=== PATIENT | female | born 1960 | race Caucasian/White ===

== ENCOUNTER 2016-05-05 08:22 | Emergency (ER) | payer MEDICAID ==
[~2016-05-05] VITALS: Ht 172.7 cm; Wt 81.8 kg
[~2016-05-05 08:22] MED LIST: AMLO-511 PO; BENZ1TAB10 PO; LORA10TA7 PO; QUET25TA PO; SIMV-259 PO; TRAZ-147 PO; VENL-68 PO
[2016-05-05 08:32] VITALS: BP 140/82
[2016-05-06] MEDS ORDERED: DULO20CA30 PO (13:08)
[2016-05-06] MEDS ORDERED: TRAZ-144 PO (13:08)
[2016-05-06] MEDS ORDERED: QUET200T29 PO (13:08)
== END 2016-05-05 09:24 | disposition left against medical advice (07) ==
LOC: EMS 08:23
DX: F32.9 Major depressive disorder, single episode, unspecified (principal); F20.9 Schizophrenia, unspecified; F17.210 Nicotine dependence, cigarettes, uncomplicated; Z53.21 Procedure and treatment not carried out due to patient leaving prior to being seen by health care provider

== ENCOUNTER 2016-05-05 10:05 | Inpatient (IN) | payer MEDICAID ==
[~2016-05-05] VITALS: Ht 175.3 cm; Wt 102.7 kg
[2016-05-05 10:31] VITALS: BP 128/70
[2016-05-05] MEDS ORDERED: PROMETHAZINE HCL 25 MG TABLET PO PRN (11:15)
[2016-05-05] MEDS ORDERED: MAG HYDROX/AL HYDROX/SIMETH ES 30 ML SUSPENSION UDCUP PO PRN (11:15)
[2016-05-05] MEDS ORDERED: LOPERAMIDE HCL 2 MG CAPSULE PO PRN (11:15)
[2016-05-05] MEDS ORDERED: ZOLPIDEM TARTRATE 10 MG TABLET PO PRN (11:15)
[2016-05-05] MEDS ORDERED: MAGNESIUM HYDROXIDE SUSPENSION 30 ML UDCUP PO PRN (11:15)
[2016-05-05] MEDS ORDERED: VENLAFAXINE HCL 75 MG ER CAPSULE PO ONE (11:15)
[2016-05-05] MEDS ORDERED: GuaiFENesin/D-METHORPHAN [SUGAR-FREE] 200-20MG/10 ML SYRUP UDCUP PO PRN (11:15)
[2016-05-05] MEDS ORDERED: HydrOXYzine PAMOATE 50 MG CAPSULE PO PRN (11:15)
[2016-05-05] MEDS ORDERED: TUBERCULIN, PURIFIED PROTEIN DERIVATIVE 5 TU/0.1 ML SYG ID ONE (11:15)
[2016-05-05] MEDS ORDERED: PNEUMOCOCCAL VACCINE POLYVALENT 0.5 ML VIAL [PPSV23] IM ONE (12:00)
[2016-05-05] MEDS: LORazepam 2 MG TABLET PO PRN (12:26)
[2016-05-05] MEDS: QUEtiapine FUMARATE 100 MG TABLET PO PRN (12:26)
[2016-05-05 12:46] VITALS: BP 135/75
[2016-05-05 14:06] VITALS: BP 134/71
[2016-05-05] MEDS: ACETAMINOPHEN 325 MG TABLET PO PRN (14:06)
[2016-05-05 16:26] VITALS: BP 128/74
[2016-05-05] MEDS: THIAMINE HCL 100 MG TABLET PO SCH (17:05)
[2016-05-05] MEDS ORDERED: SIMVASTATIN 10 MG TABLET PO SCH (21:00)
[2016-05-05] MEDS ORDERED: TraZODone HCL 50 MG TABLET PO SCH (21:00)
[2016-05-05] MEDS ORDERED: QUEtiapine FUMARATE 200 MG TABLET PO SCH (21:00)
[2016-05-06 05:52] VITALS: BP 130/74
[2016-05-06] MEDS: LORazepam 2 MG TABLET PO PRN ×2 (06:42→12:54)
[2016-05-06] MEDS: ACETAMINOPHEN 325 MG TABLET PO PRN (06:42)
[2016-05-06 08:19] LABS: BASOPHILS % (AUTO) 0.6 % (0.0-2.0); EOSINOPHILS % (AUTO) 3.9 % (1.0-6.0); HEMATOCRIT 38.6 % (36-46); HEMOGLOBIN 12.7 g/dL (12.0-16.0); LYMPHOCYTES # (AUTO) 2.5 K/uL (1.0-4.8); LYMPHOCYTES % (AUTO) 29.1 % (22.0-44.0); MEAN CORPUSCULAR HEMOGLOBIN 29.3 pg (26.0-34.0); MEAN CORPUSCULAR VOLUME 89 fL (80-100); MONOCYTES # (AUTO) 0.6 K/uL (0.1-1.0); MONOCYTES % (AUTO) 6.7 % (2.0-9.0); NEUTROPHILS # (AUTO) 5.1 K/uL (1.8-7.7); NEUTROPHILS % (AUTO) 59.7 % (40.0-70.0); PLATELET COUNT (AUTO) 400 K/uL (150-450); RED BLOOD CELL COUNT(AUTO) 4.34 MIL/uL (4.00-5.20); WHITE BLOOD COUNT (AUTO) 8.5 K/uL (4.5-11.0)
[2016-05-06 08:26] VITALS: BP 103/60
[2016-05-06] MEDS: THIAMINE HCL 100 MG TABLET PO SCH (08:59)
[2016-05-06] MEDS ORDERED: VENLAFAXINE HCL 75 MG ER CAPSULE PO SCH (09:00)
[2016-05-06] MEDS ORDERED: FOLIC ACID 1 MG TABLET PO SCH (09:00)
[2016-05-06] MEDS ORDERED: MULTIVITAMINS WITH MINERALS, THERAPEUTIC TABLET PO SCH (09:00)
[2016-05-06] MEDS ORDERED: AmLODIPine BESYLATE 5 MG TABLET PO SCH (09:00)
[2016-05-06] MEDS ORDERED: LORATADINE 10 MG TABLET PO SCH (09:00)
[2016-05-06] MEDS ORDERED: DULoxetine HCL 20 MG CAPSULE PO SCH (09:00)
[2016-05-06 09:18] LABS: ALANINE AMINOTRANSFERASE 25 U/L (12-78); ALBUMIN 3.2 g/dL (3.4-5.0); ANION GAP 11 mmol/L (8-16); ASPARTATE AMINOTRANSFERASE 13 U/L (15-37); BILIRUBIN,TOTAL 0.3 mg/dL (0.1-1.0); CALCIUM, TOTAL 8.3 mg/dL (8.8-10.5); CARBON DIOXIDE 26 mmol/L (22-29); CHLORIDE 106 mmol/L (98-107); CREATININE 0.71 mg/dL (0.60-1.30); GLOMERULAR FILTR. RATE CALC > 60 mL/min (>60); POTASSIUM 3.9 mmol/L (3.5-5.1); SODIUM SERUM 143 mmol/L (136-145); THYROID STIMULATING HORMONE 2.91 uIU/mL (0.36-3.74); TOTAL PROTEIN, SERUM 6.8 g/dL (6.4-8.2); UREA NITROGEN, BLOOD 16 mg/dL (7-18)
[2016-05-06 09:41] LABS: HEMOGLOBIN A1C 5.8 % (4.5-6.2)
[2016-05-06 10:32] LABS: APPEARANCE,URINE CLOUDY (CLEAR); GLUCOSE, URINE (UA) NEGATIVE (NEGATIVE); KETONES,URINE NEGATIVE (NEGATIVE); LEUKOCYTE ESTERASE ,URINE NEGATIVE (NEGATIVE); OCCULT BLOOD,URINE NEGATIVE (NEGATIVE); PH,URINE 5.5 (5.0-8.0); PROTEIN,URINE NEGATIVE (NEGATIVE)
[2016-05-06 10:33] LABS: ADD UA MICROSCOPIC YES
[2016-05-06 10:38] LABS: AMORPHOUS SEDIMENT,UR Many /LPF (None Seen); CALCIUM OXALATE CRYSTALS,UR Few /LPF (None Seen); RBC,URINE None Seen /HPF (0-2); WBC,URINE None Seen /HPF (0-5)
[2016-05-06] MEDS: QUEtiapine FUMARATE 100 MG TABLET PO PRN (12:54)
[2016-05-06] MEDS ORDERED: TRAZ-144 PO (13:08)
[2016-05-06] MEDS ORDERED: QUET200T29 PO (13:08)
[2016-05-06] MEDS ORDERED: DULO20CA30 PO (13:08)
[2016-05-07] MEDS ORDERED: DULoxetine HCL 20 MG CAPSULE PO SCH (09:00)
== END 2016-05-06 14:40 | disposition home or self-care (01) | DRG 750 ==
LOC: EDSTATUS 10:16 → B2S 11:21
PROVIDERS: ADMIT Psychiatry & Neurology Psychiatry; ATTEND Psychiatry & Neurology Psychiatry
DX: F25.9 Schizoaffective disorder, unspecified (principal); R45.851 Suicidal ideations; Z91.14 Patient's other noncompliance with medication regimen; F41.9 Anxiety disorder, unspecified; M19.90 Unspecified osteoarthritis, unspecified site; I10 Essential (primary) hypertension; E78.5 Hyperlipidemia, unspecified; F32.9 Major depressive disorder, single episode, unspecified; G89.4 Chronic pain syndrome; J30.9 Allergic rhinitis, unspecified; F15.10 Other stimulant abuse, uncomplicated; F17.210 Nicotine dependence, cigarettes, uncomplicated; Z98.890 Other specified postprocedural states; Z96.642 Presence of left artificial hip joint; Z79.899 Other long term (current) drug therapy; Z59.0 Homelessness; Z71.51 Drug abuse counseling and surveillance of drug abuser; Z71.89 Other specified counseling; Z28.21 Immunization not carried out because of patient refusal
CPT/HCPCS: 80307; 83036; 84439; 84443; 86592

== ENCOUNTER 2016-06-20 15:33 | Inpatient (IN) | payer MEDICAID ==
[~2016-06-20] VITALS: Ht 175.3 cm; Wt 103.4 kg
[~2016-06-20 15:33] MED LIST changes: -BENZ1TAB10 PO; +DULO20CA30 PO; +QUET200T29 PO; -QUET25TA PO; -SIMV-259 PO; +SIMV10 PO; +TRAZ-144 PO; -TRAZ-147 PO; -VENL-68 PO
[2016-06-20 16:02] LABS: EOSINOPHILS % (AUTO) 2.7 % (1.0-6.0); HEMATOCRIT 41.7 % (36-46); HEMOGLOBIN 13.6 g/dL (12.0-16.0); LYMPHOCYTES % (AUTO) 31.8 % (22.0-44.0); MEAN CORPUSCULAR HEMOGLOBIN 29.2 pg (26.0-34.0); MEAN CORPUSCULAR HGB CONC 32.5 G/dL (31.0-37.0); MEAN CORPUSCULAR VOLUME 90 fL (80-100); MONOCYTES # (AUTO) 0.5 K/uL (0.1-1.0); MONOCYTES % (AUTO) 5.3 % (2.0-9.0); NEUTROPHILS # (AUTO) 5.6 K/uL (1.8-7.7); NEUTROPHILS % (AUTO) 59.2 % (40.0-70.0); PLATELET COUNT (AUTO) 356 K/uL (150-450); RED BLOOD CELL COUNT(AUTO) 4.64 MIL/uL (4.00-5.20); RED CELL DISTRIBUTION WIDTH 14.5 % (11.5-14.5); WHITE BLOOD COUNT (AUTO) 9.4 K/uL (4.5-11.0)
[2016-06-20 16:09] LABS: ANION GAP 8 mmol/L (8-16); CALCIUM, TOTAL 8.9 mg/dL (8.8-10.5); CARBON DIOXIDE 29 mmol/L (22-29); CHLORIDE 102 mmol/L (98-107); CREATININE 0.71 mg/dL (0.60-1.30); GLOMERULAR FILTR. RATE CALC > 60 mL/min (>60); SODIUM SERUM 139 mmol/L (136-145); UREA NITROGEN, BLOOD 15 mg/dL (7-18)
[2016-06-20 16:17] LABS: ALANINE AMINOTRANSFERASE 31 U/L (12-78); ALBUMIN 3.9 g/dL (3.4-5.0); ASPARTATE AMINOTRANSFERASE 18 U/L (15-37); BILIRUBIN,TOTAL 0.2 mg/dL (0.1-1.0); TOTAL PROTEIN, SERUM 7.8 g/dL (6.4-8.2)
[2016-06-20 16:26] LABS: ADD UA MICROSCOPIC NO; APPEARANCE,URINE CLEAR (CLEAR); GLUCOSE, URINE (UA) NEGATIVE (NEGATIVE); KETONES,URINE NEGATIVE (NEGATIVE); LEUKOCYTE ESTERASE ,URINE NEGATIVE (NEGATIVE); OCCULT BLOOD,URINE NEGATIVE (NEGATIVE); PROTEIN,URINE NEGATIVE (NEGATIVE)
[2016-06-20] MEDS ORDERED: HALOPERIDOL 5 MG TABLET PO ONE (18:45)
[2016-06-20] MEDS ORDERED: LORazepam 2 MG TABLET PO ONE (18:45)
[2016-06-20] MEDS ORDERED: HALOPERIDOL 5 MG TABLET PO PRN (19:15)
[2016-06-20] MEDS ORDERED: ZOLPIDEM TARTRATE 10 MG TABLET PO PRN (19:15)
[2016-06-20 21:39] VITALS: BP 137/75
[2016-06-20] MEDS: LORazepam 2 MG TABLET PO PRN (22:03)
[2016-06-21 06:30] VITALS: BP 132/79
[2016-06-21] MEDS: AmLODIPine BESYLATE 5 MG TABLET PO SCH (08:11)
[2016-06-21] MEDS: LORATADINE 10 MG TABLET PO SCH (08:11)
[2016-06-21] MEDS: LORazepam 2 MG TABLET PO PRN (08:19)
[2016-06-21 08:58] VITALS: BP 138/87
[2016-06-21] MEDS: DULoxetine HCL 20 MG CAPSULE PO SCH (12:45)
[2016-06-21] MEDS: QUEtiapine FUMARATE 25 MG TABLET PO PRN (13:25)
[2016-06-21 16:07] VITALS: BP 132/61
[2016-06-21] MEDS: QUEtiapine FUMARATE 200 MG TABLET PO SCH (20:31)
[2016-06-21] MEDS: TraZODone HCL 50 MG TABLET PO SCH (20:31)
[2016-06-21] MEDS: SIMVASTATIN 10 MG TABLET PO SCH (20:31)
[2016-06-22 07:10] VITALS: BP 121/75
[2016-06-22] MEDS: DULoxetine HCL 20 MG CAPSULE PO SCH (08:15)
[2016-06-22] MEDS: AmLODIPine BESYLATE 5 MG TABLET PO SCH (08:15)
[2016-06-22] MEDS: LORATADINE 10 MG TABLET PO SCH (08:15)
[2016-06-22] MEDS: QUEtiapine FUMARATE 25 MG TABLET PO PRN ×3 (08:16→16:39)
[2016-06-22 08:30] VITALS: BP 133/68
[2016-06-22] MEDS: LORazepam 2 MG TABLET PO PRN ×3 (08:30→17:03)
[2016-06-22] MEDS: ACETAMINOPHEN 325 MG TABLET PO PRN (16:07)
[2016-06-22 16:08] VITALS: BP 128/72
[2016-06-22 16:18] VITALS: BP 119/74
[2016-06-22] MEDS: TraZODone HCL 50 MG TABLET PO SCH (20:32)
[2016-06-22] MEDS: QUEtiapine FUMARATE 200 MG TABLET PO SCH (20:32)
[2016-06-22] MEDS: SIMVASTATIN 10 MG TABLET PO SCH (20:34)
[2016-06-23 00:05] VITALS: BP 101/63
[2016-06-23 05:13] VITALS: BP 148/79
[2016-06-23] MEDS: ACETAMINOPHEN 325 MG TABLET PO PRN (05:18)
[2016-06-23] MEDS: LORazepam 2 MG TABLET PO PRN ×2 (05:18→11:47)
[2016-06-23] MEDS: QUEtiapine FUMARATE 25 MG TABLET PO PRN ×3 (05:48→15:53)
[2016-06-23] MEDS: AmLODIPine BESYLATE 5 MG TABLET PO SCH (08:19)
[2016-06-23] MEDS: DULoxetine HCL 20 MG CAPSULE PO SCH (08:19)
[2016-06-23] MEDS: LORATADINE 10 MG TABLET PO SCH (08:20)
[2016-06-23 08:41] VITALS: BP 137/72
[2016-06-23] MEDS: NICOTINE 14 MG/24 HOUR PATCH TD SCH (11:08)
[2016-06-23 16:14] VITALS: BP 145/82
[2016-06-23] MEDS: QUEtiapine FUMARATE 200 MG TABLET PO SCH (20:45)
[2016-06-23] MEDS: SIMVASTATIN 10 MG TABLET PO SCH (20:45)
[2016-06-23] MEDS: TraZODone HCL 50 MG TABLET PO SCH (20:46)
[2016-06-24 06:05] VITALS: BP 109/66
[2016-06-24] MEDS: LORazepam 2 MG TABLET PO PRN ×2 (06:06→11:58)
[2016-06-24] MEDS: ACETAMINOPHEN 325 MG TABLET PO PRN (06:06)
[2016-06-24] MEDS: QUEtiapine FUMARATE 25 MG TABLET PO PRN (06:59)
[2016-06-24 08:31] VITALS: BP 121/75
[2016-06-24] MEDS: DULoxetine HCL 20 MG CAPSULE PO SCH (08:51)
[2016-06-24] MEDS: AmLODIPine BESYLATE 5 MG TABLET PO SCH (08:51)
[2016-06-24] MEDS: NICOTINE 14 MG/24 HOUR PATCH TD SCH (08:51)
[2016-06-24] MEDS: LORATADINE 10 MG TABLET PO SCH (08:51)
== END 2016-06-24 13:55 | disposition home or self-care (01) | DRG 750 ==
LOC: EMS 15:35 → EEVIPCON 15:35 → B3A 19:45 → B2S 06-22 18:05
PROVIDERS: ADMIT Psychiatry & Neurology Child & Adolescent Psychiatry; ATTEND Psychiatry & Neurology Child & Adolescent Psychiatry
DX: F25.1 Schizoaffective disorder, depressive type (principal); R45.851 Suicidal ideations; I10 Essential (primary) hypertension; M19.90 Unspecified osteoarthritis, unspecified site; F17.210 Nicotine dependence, cigarettes, uncomplicated; E78.5 Hyperlipidemia, unspecified; Z96.642 Presence of left artificial hip joint; J30.9 Allergic rhinitis, unspecified; F99 Mental disorder, not otherwise specified; Z79.899 Other long term (current) drug therapy; Z71.6 Tobacco abuse counseling
CPT/HCPCS: 99285; G0480

== ENCOUNTER 2017-01-27 13:08 | Inpatient (IN) | payer MEDICAID ==
[~2017-01-27] VITALS: Ht 175.3 cm; Wt 98.6 kg
[~2017-01-27 13:08] MED LIST changes: +SIMV-259 PO; -SIMV10 PO
[2017-01-27 13:55] LABS: EOSINOPHILS % (AUTO) 2.8 % (1.0-6.0); HEMATOCRIT 40.8 % (36-46); HEMOGLOBIN 13.8 g/dL (12.0-16.0); LYMPHOCYTES # (AUTO) 2.5 K/uL (1.0-4.8); LYMPHOCYTES % (AUTO) 27.1 % (22.0-44.0); MEAN CORPUSCULAR HEMOGLOBIN 30.1 pg (26.0-34.0); MEAN CORPUSCULAR HGB CONC 33.8 G/dL (31.0-37.0); MEAN CORPUSCULAR VOLUME 89 fL (80-100); MONOCYTES # (AUTO) 0.4 K/uL (0.1-1.0); MONOCYTES % (AUTO) 4.6 % (2.0-9.0); PLATELET COUNT (AUTO) 416 K/uL (150-450); RED BLOOD CELL COUNT(AUTO) 4.58 MIL/uL (4.00-5.20); RED CELL DISTRIBUTION WIDTH 14.8 % (11.5-14.5); WHITE BLOOD COUNT (AUTO) 9.3 K/uL (4.5-11.0)
[2017-01-27 14:15] LABS: ALANINE AMINOTRANSFERASE 25 U/L (12-78); ALBUMIN 3.4 g/dL (3.4-5.0); ANION GAP 8 mmol/L (8-16); ASPARTATE AMINOTRANSFERASE 17 U/L (15-37); BILIRUBIN,TOTAL 0.2 mg/dL (0.1-1.0); CALCIUM, TOTAL 8.9 mg/dL (8.8-10.5); CARBON DIOXIDE 29 mmol/L (22-29); CHLORIDE 104 mmol/L (98-107); POTASSIUM 3.2 mmol/L (3.5-5.1); SODIUM SERUM 141 mmol/L (136-145); TOTAL PROTEIN, SERUM 6.9 g/dL (6.4-8.2); UREA NITROGEN, BLOOD 17 mg/dL (7-18)
[2017-01-27 14:24] LABS: CREATININE 0.95 mg/dL (0.60-1.30); GLOMERULAR FILTR. RATE CALC > 60 mL/min (>60)
[2017-01-27 14:36] LABS: NEUTROPHILS % (AUTO) 64.5 % (40.0-70.0)
[2017-01-27] MEDS: LORazepam 2 MG TABLET PO PRN ×2 (16:26→20:39)
[2017-01-27] MEDS ORDERED: POTASSIUM CHLORIDE 20 MEQ ER TABLET PO ONE (16:30)
[2017-01-27 17:34] VITALS: BP 149/82
[2017-01-27] MEDS ORDERED: PNEUMOCOCCAL VACCINE POLYVALENT 0.5 ML VIAL [PPSV23] IM ONE (17:45)
[2017-01-27] MEDS ORDERED: INFLUENZA VIRUS VACCINE QVS 2017-18 (3YR+)/PF 60 MCG/0.5 ML SYRINGE IM ONE (17:45)
[2017-01-27] MEDS: HALOPERIDOL 5 MG TABLET PO PRN (17:58)
[2017-01-27 18:37] VITALS: BP 152/79
[2017-01-27] MEDS: IBUPROFEN 400 MG TABLET PO PRN (20:23)
[2017-01-27] MEDS: QUEtiapine FUMARATE 200 MG TABLET PO SCH (20:23)
[2017-01-27] MEDS: AmLODIPine BESYLATE 5 MG TABLET PO SCH (20:23)
[2017-01-27 21:42] VITALS: BP 149/85
[2017-01-27] MEDS ORDERED: LORATADINE 10 MG TABLET PO PRN (22:00)
[2017-01-27] MEDS ORDERED: ACETAMINOPHEN 325 MG TABLET PO PRN (22:00)
[2017-01-28 00:10] VITALS: BP 148/83
[2017-01-28] MEDS ORDERED: QUEtiapine FUMARATE 25 MG TABLET PO SCH (01:00)
[2017-01-28 08:23] VITALS: BP 130/65
[2017-01-28 08:41] LABS: CHOL/HDL RATIO 6.2 (3.9-5.7); POTASSIUM 3.8 mmol/L (3.5-5.1)
[2017-01-28] MEDS: DULoxetine HCL 20 MG CAPSULE PO SCH (09:15)
[2017-01-28] MEDS: AmLODIPine BESYLATE 5 MG TABLET PO SCH (09:15)
[2017-01-28] MEDS: LORazepam 2 MG TABLET PO PRN (09:39)
[2017-01-28] MEDS: HALOPERIDOL 5 MG TABLET PO PRN (10:52)
[2017-01-28] MEDS: QUEtiapine FUMARATE 25 MG TABLET PO SCH (13:12)
[2017-01-28 16:04] VITALS: BP 131/74
[2017-01-28] MEDS: QUEtiapine FUMARATE 200 MG TABLET PO SCH (20:04)
[2017-01-29 06:22] VITALS: BP 135/72
[2017-01-29] MEDS: LORazepam 2 MG TABLET PO PRN ×2 (06:31→11:28)
[2017-01-29] MEDS: HALOPERIDOL 5 MG TABLET PO PRN (06:54)
[2017-01-29] MEDS: IBUPROFEN 400 MG TABLET PO PRN (06:54)
[2017-01-29] MEDS: QUEtiapine FUMARATE 25 MG TABLET PO SCH ×2 (08:08→12:56)
[2017-01-29] MEDS: AmLODIPine BESYLATE 5 MG TABLET PO SCH (08:08)
[2017-01-29] MEDS: DULoxetine HCL 20 MG CAPSULE PO SCH (08:08)
[2017-01-29 08:23] VITALS: BP 137/73
[2017-01-29 16:35] VITALS: BP 134/67
[2017-01-29] MEDS: QUEtiapine FUMARATE 200 MG TABLET PO SCH (20:54)
[2017-01-30 05:10] VITALS: BP 132/73
[2017-01-30] MEDS: IBUPROFEN 400 MG TABLET PO PRN ×2 (05:15→13:25)
[2017-01-30 06:15] VITALS: BP 132/79
[2017-01-30] MEDS: AmLODIPine BESYLATE 5 MG TABLET PO SCH (08:04)
[2017-01-30] MEDS: QUEtiapine FUMARATE 25 MG TABLET PO SCH ×2 (08:05→12:28)
[2017-01-30] MEDS: DULoxetine HCL 20 MG CAPSULE PO SCH (08:05)
[2017-01-30 08:36] VITALS: BP 147/67
[2017-01-30] MEDS: LORazepam 2 MG TABLET PO PRN ×2 (10:21→15:50)
[2017-01-30] MEDS: HALOPERIDOL 5 MG TABLET PO PRN (13:25)
[2017-01-30 13:26] VITALS: BP 130/76
[2017-01-30 15:50] VITALS: BP 128/84
[2017-01-30] MEDS: TraMADol HCL 50 MG TABLET PO PRN (15:50)
[2017-01-30 16:09] VITALS: BP 129/75
[2017-01-30] MEDS: QUEtiapine FUMARATE 200 MG TABLET PO SCH (20:27)
[2017-01-30] MEDS ORDERED: ACETAMINOPHEN 325 MG TABLET PO PRN (22:00)
[2017-01-31 05:23] VITALS: BP 146/82
[2017-01-31] MEDS: IBUPROFEN 400 MG TABLET PO PRN ×2 (05:46→21:35)
[2017-01-31] MEDS: LORazepam 2 MG TABLET PO PRN ×3 (05:47→20:45)
[2017-01-31] MEDS: QUEtiapine FUMARATE 25 MG TABLET PO SCH ×2 (07:01→12:23)
[2017-01-31 08:18] VITALS: BP 121/60
[2017-01-31] MEDS: AmLODIPine BESYLATE 5 MG TABLET PO SCH ×2 (09:00→09:12)
[2017-01-31] MEDS: DULoxetine HCL 20 MG CAPSULE PO SCH (09:12)
[2017-01-31] MEDS: TraMADol HCL 50 MG TABLET PO PRN ×2 (09:56→18:01)
[2017-01-31 16:03] VITALS: BP 140/82
[2017-01-31] MEDS: QUEtiapine FUMARATE 200 MG TABLET PO SCH (20:45)
[2017-02-01 02:32] VITALS: BP 140/77
[2017-02-01] MEDS: ZOLPIDEM TARTRATE 10 MG TABLET PO PRN (02:34)
[2017-02-01] MEDS: TraMADol HCL 50 MG TABLET PO PRN ×2 (02:34→12:41)
[2017-02-01] MEDS: QUEtiapine FUMARATE 25 MG TABLET PO SCH ×2 (06:41→12:41)
[2017-02-01 08:19] VITALS: BP 135/81
[2017-02-01] MEDS: DULoxetine HCL 20 MG CAPSULE PO SCH (09:00)
[2017-02-01] MEDS: AmLODIPine BESYLATE 5 MG TABLET PO SCH (09:00)
[2017-02-01] MEDS: LORazepam 2 MG TABLET PO PRN ×2 (14:08→20:05)
[2017-02-01 16:02] VITALS: BP 128/68
[2017-02-01] MEDS: SIMVASTATIN 10 MG TABLET PO SCH (20:05)
[2017-02-01] MEDS: QUEtiapine FUMARATE 200 MG TABLET PO SCH (20:05)
[2017-02-02 02:15] VITALS: BP 138/72
[2017-02-02] MEDS: ZOLPIDEM TARTRATE 10 MG TABLET PO PRN (02:18)
[2017-02-02] MEDS: TraMADol HCL 50 MG TABLET PO PRN ×2 (02:19→20:23)
[2017-02-02] MEDS: LORazepam 2 MG TABLET PO PRN ×2 (06:11→11:12)
[2017-02-02] MEDS: IBUPROFEN 400 MG TABLET PO PRN (06:12)
[2017-02-02] MEDS: QUEtiapine FUMARATE 25 MG TABLET PO SCH ×2 (06:12→12:41)
[2017-02-02 08:00] VITALS: BP 119/63
[2017-02-02] MEDS: DULoxetine HCL 20 MG CAPSULE PO SCH (08:46)
[2017-02-02] MEDS: AmLODIPine BESYLATE 5 MG TABLET PO SCH (08:49)
[2017-02-02 09:54] VITALS: BP 131/74
[2017-02-02 10:58] LABS: GLUCOSE,POINT OF CARE 100 MG/DL (70-110)
[2017-02-02 15:59] VITALS: BP 129/65
[2017-02-02 16:10] VITALS: BP 129/65
[2017-02-02] MEDS: QUEtiapine FUMARATE 200 MG TABLET PO SCH (20:22)
[2017-02-02] MEDS: SIMVASTATIN 10 MG TABLET PO SCH (20:22)
[2017-02-02 20:23] VITALS: BP 120/69
[2017-02-03 00:05] VITALS: BP 124/67
[2017-02-03 03:03] VITALS: BP 134/80
[2017-02-03] MEDS: ZOLPIDEM TARTRATE 10 MG TABLET PO PRN (03:15)
[2017-02-03] MEDS: IBUPROFEN 400 MG TABLET PO PRN (03:16)
[2017-02-03 06:31] VITALS: BP 135/94
[2017-02-03] MEDS: QUEtiapine FUMARATE 25 MG TABLET PO SCH ×2 (06:38→12:54)
[2017-02-03] MEDS: TraMADol HCL 50 MG TABLET PO PRN ×2 (06:38→14:54)
[2017-02-03] MEDS: AmLODIPine BESYLATE 5 MG TABLET PO SCH (08:17)
[2017-02-03] MEDS: DULoxetine HCL 20 MG CAPSULE PO SCH (08:17)
[2017-02-03 08:26] VITALS: BP 134/79
[2017-02-03] MEDS: LORazepam 2 MG TABLET PO PRN (08:26)
[2017-02-03] MEDS: HALOPERIDOL 5 MG TABLET PO PRN (10:31)
[2017-02-03] MEDS ORDERED: QUET200T PO (14:16)
[2017-02-03] MEDS ORDERED: QUET25TA PO ×2 (14:16→14:17)
[2017-02-03] MEDS ORDERED: DULO20CA30 PO (14:18)
[2017-02-03] MEDS ORDERED: SIMV-259 PO (14:18)
[2017-02-03] MEDS ORDERED: AMLO-511 PO (14:19)
[2017-02-03 14:54] VITALS: BP 128/82
[2017-02-03 16:13] VITALS: BP 133/68
== END 2017-02-03 16:10 | disposition home or self-care (01) | DRG 750 ==
LOC: EMS 13:09 → B2S 16:10
DX: F25.1 Schizoaffective disorder, depressive type (principal); R45.851 Suicidal ideations; I10 Essential (primary) hypertension; E78.5 Hyperlipidemia, unspecified; J30.9 Allergic rhinitis, unspecified; Z87.891 Personal history of nicotine dependence; Z91.5 Personal history of self-harm; Z96.642 Presence of left artificial hip joint; M19.90 Unspecified osteoarthritis, unspecified site; F12.90 Cannabis use, unspecified, uncomplicated; Z28.21 Immunization not carried out because of patient refusal
CPT/HCPCS: 82962; 83036; 84132; 84439; 84443; 99285; G0480

== ENCOUNTER 2017-11-27 16:16 | Inpatient (IN) | payer MEDICAID ==
[~2017-11-27] VITALS: Ht 175.3 cm; Wt 89.9 kg
[~2017-11-27 16:16] MED LIST changes: -LORA10TA7 PO; +QUET200T PO; -QUET200T29 PO; +QUET25TA PO; -TRAZ-144 PO
[2017-11-27 19:05] LABS: BASOPHILS % (AUTO) 0.6 % (0.0-2.0); HEMATOCRIT 38.8 % (36-46); LYMPHOCYTES # (AUTO) 3.2 K/uL (1.0-4.8); LYMPHOCYTES % (AUTO) 35.7 % (22.0-44.0); MEAN CORPUSCULAR HEMOGLOBIN 30.1 pg (26.0-34.0); MEAN CORPUSCULAR HGB CONC 33.5 G/dL (31.0-37.0); MEAN CORPUSCULAR VOLUME 90 fL (80-100); MONOCYTES # (AUTO) 0.3 K/uL (0.1-1.0); MONOCYTES % (AUTO) 3.6 % (2.0-9.0); NEUTROPHILS % (AUTO) 56.1 % (40.0-70.0); PLATELET COUNT (AUTO) 441 K/uL (150-450); RED BLOOD CELL COUNT(AUTO) 4.31 MIL/uL (4.00-5.20); RED CELL DISTRIBUTION WIDTH 14.4 % (11.5-14.5)
[2017-11-27 19:16] LABS: ANION GAP 9 mmol/L (8-16); CALCIUM, TOTAL 8.9 mg/dL (8.8-10.5); CARBON DIOXIDE 27 mmol/L (22-29); CHLORIDE 106 mmol/L (98-107); CREATININE 0.89 mg/dL (0.60-1.30); GLOMERULAR FILTR. RATE CALC > 60 mL/min (>60); GLUCOSE,RANDOM 88 mg/dL (70-110); SODIUM SERUM 142 mmol/L (136-145); UREA NITROGEN, BLOOD 19 mg/dL (7-18)
[2017-11-27 19:21] LABS: ALANINE AMINOTRANSFERASE 19 U/L (12-78); ALBUMIN 3.7 g/dL (3.4-5.0); ALKALINE PHOSPHATASE 113 U/L (46-116); ASPARTATE AMINOTRANSFERASE 15 U/L (15-37); BILIRUBIN,TOTAL 0.2 mg/dL (0.1-1.0); TOTAL PROTEIN, SERUM 7.6 g/dL (6.4-8.2)
[2017-11-27] MEDS ORDERED: LORazepam 1 MG TABLET PO ONE (20:00)
[2017-11-27] MEDS ORDERED: ZOLPIDEM TARTRATE 10 MG TABLET PO PRN (21:45)
[2017-11-27] MEDS ORDERED: HALOPERIDOL 5 MG TABLET PO PRN (21:45)
[2017-11-28] VITALS (12 sets, daily range): BP systolic 112–170; BP diastolic 60–93
[2017-11-28 07:27] LABS: CHOL/HDL RATIO 5.3 (3.9-5.7)
[2017-11-28] MEDS: LORazepam 2 MG TABLET PO PRN ×2 (09:02→16:55)
[2017-11-28] MEDS ORDERED: CloNIDine HCL 0.1 MG TABLET PO PRN (10:30)
[2017-11-28] MEDS ORDERED: PETROLATUM,WHITE 71 GM JELLY TP PRN (10:30)
[2017-11-28] MEDS ORDERED: MAG HYDROX/AL HYDROX/SIMETH ES 30 ML SUSPENSION UDCUP PO PRN (10:30)
[2017-11-28] MEDS ORDERED: MAGNESIUM HYDROXIDE SUSPENSION 30 ML UDCUP PO PRN (10:30)
[2017-11-28] MEDS ORDERED: NICOTINE 14 MG/24 HOUR PATCH TD PRN (10:30)
[2017-11-28] MEDS ORDERED: ALBUTEROL SULFATE HFA 90 MCG/PUFF 8 GM INHALER IH PRN (10:30)
[2017-11-28] MEDS ORDERED: DOCUSATE SODIUM 100 MG CAPSULE PO PRN (10:30)
[2017-11-28] MEDS ORDERED: GuaiFENesin/D-METHORPHAN [SUGAR-FREE] 200-20MG/10 ML SYRUP UDCUP PO PRN (10:30)
[2017-11-28] MEDS ORDERED: LOPERAMIDE HCL 2 MG CAPSULE PO PRN (10:30)
[2017-11-28] MEDS ORDERED: ONDANSETRON HCL 4 MG TABLET PO PRN (10:30)
[2017-11-28] MEDS: DULoxetine HCL 20 MG CAPSULE PO SCH (11:03)
[2017-11-28] MEDS: IBUPROFEN 400 MG TABLET PO PRN (11:03)
[2017-11-28] MEDS ORDERED: QUEtiapine FUMARATE 25 MG TABLET PO SCH (13:00)
[2017-11-28] MEDS ORDERED: QUEtiapine FUMARATE 200 MG TABLET PO SCH (21:00)
[2017-11-29] VITALS (8 sets, daily range): BP systolic 112–150; BP diastolic 53–90
[2017-11-29] MEDS: LORazepam 2 MG TABLET PO PRN ×3 (03:22→13:29)
[2017-11-29] MEDS: IBUPROFEN 400 MG TABLET PO PRN (04:45)
[2017-11-29] MEDS ORDERED: QUEtiapine FUMARATE 25 MG TABLET PO SCH (07:00)
[2017-11-29 07:01] LABS: BASOPHILS % (AUTO) 0.9 % (0.0-2.0); EOSINOPHILS % (AUTO) 5.7 % (1.0-6.0); HEMATOCRIT 39.4 % (36-46); HEMOGLOBIN 13.1 g/dL (12.0-16.0); LYMPHOCYTES % (AUTO) 34.3 % (22.0-44.0); MEAN CORPUSCULAR HGB CONC 33.4 G/dL (31.0-37.0); MEAN CORPUSCULAR VOLUME 90 fL (80-100); MONOCYTES # (AUTO) 0.4 K/uL (0.1-1.0); NEUTROPHILS # (AUTO) 4.8 K/uL (1.8-7.7); NEUTROPHILS % (AUTO) 54.1 % (40.0-70.0); PLATELET COUNT (AUTO) 459 K/uL (150-450); RED BLOOD CELL COUNT(AUTO) 4.39 MIL/uL (4.00-5.20); RED CELL DISTRIBUTION WIDTH 14.4 % (11.5-14.5)
[2017-11-29 07:31] LABS: ALANINE AMINOTRANSFERASE 21 U/L (12-78); ALBUMIN 3.6 g/dL (3.4-5.0); ALKALINE PHOSPHATASE 111 U/L (46-116); ANION GAP 7 mmol/L (8-16); ASPARTATE AMINOTRANSFERASE 17 U/L (15-37); BILIRUBIN,TOTAL 0.4 mg/dL (0.1-1.0); CALCIUM, TOTAL 9.2 mg/dL (8.8-10.5); CARBON DIOXIDE 29 mmol/L (22-29); CHLORIDE 103 mmol/L (98-107); CHOL/HDL RATIO 5.2 (3.9-5.7); CHOLESTEROL 279 mg/dL (131-200); CREATININE 0.68 mg/dL (0.60-1.30); GLOMERULAR FILTR. RATE CALC > 60 mL/min (>60); GLUCOSE,RANDOM 96 mg/dL (70-110); HDL CHOLESTEROL 54 mg/dL (40-60); LDL CHOL (CALC.) 186 mg/dL (0-130); POTASSIUM 4.8 mmol/L (3.5-5.1); SODIUM SERUM 139 mmol/L (136-145); THYROID STIMULATING HORMONE 9.16 uIU/mL (0.36-3.74); TOTAL PROTEIN, SERUM 7.1 g/dL (6.4-8.2); TRIGLYCERIDES 194 mg/dL (15-150); UREA NITROGEN, BLOOD 19 mg/dL (7-18)
[2017-11-29 08:17] LABS: HEMOGLOBIN A1C 5.8 % (4.5-6.2)
[2017-11-29] MEDS: DULoxetine HCL 20 MG CAPSULE PO SCH (09:12)
[2017-11-29] MEDS: ACETAMINOPHEN 325 MG TABLET PO PRN (09:13)
[2017-11-29] MEDS: QUEtiapine FUMARATE 25 MG TABLET PO SCH ×2 (13:28→17:06)
[2017-11-29] MEDS ORDERED: QUEtiapine FUMARATE 300 MG TABLET PO SCH (21:00)
[2017-11-30 05:55] VITALS: BP 131/82
[2017-11-30] MEDS: IBUPROFEN 400 MG TABLET PO PRN (06:37)
[2017-11-30] MEDS: LORazepam 2 MG TABLET PO PRN (06:37)
[2017-11-30] MEDS: QUEtiapine FUMARATE 25 MG TABLET PO SCH (08:21)
[2017-11-30] MEDS: DULoxetine HCL 20 MG CAPSULE PO SCH (08:21)
[2017-11-30] MEDS: ACETAMINOPHEN 325 MG TABLET PO PRN (08:23)
[2017-11-30 08:54] VITALS: BP 122/65
[2017-11-30] MEDS ORDERED: QUET25TA PO (09:49)
[2017-11-30] MEDS ORDERED: QUET200T PO (09:49)
[2017-11-30] MEDS ORDERED: QUET300T18 PO (10:04)
[2017-11-30] MEDS ORDERED: DULO20CA30 PO (10:04)
[2017-11-30] MEDS ORDERED: QUET25TA34 PO (10:04)
== END 2017-11-30 11:20 | disposition home or self-care (01) | DRG 750 ==
LOC: EMS 16:17 → B2S 21:00
DX: F25.1 Schizoaffective disorder, depressive type (principal); R45.851 Suicidal ideations; F41.1 Generalized anxiety disorder; I10 Essential (primary) hypertension; M19.90 Unspecified osteoarthritis, unspecified site; F17.210 Nicotine dependence, cigarettes, uncomplicated; E78.5 Hyperlipidemia, unspecified; Z96.642 Presence of left artificial hip joint; F19.10 Other psychoactive substance abuse, uncomplicated; F10.129 Alcohol abuse with intoxication, unspecified; Y90.6 Blood alcohol level of 120-199 mg/100 ml; Z79.899 Other long term (current) drug therapy
CPT/HCPCS: 83036; 84439; 84443; 99285; G0480

== ENCOUNTER 2020-05-08 08:14 | Inpatient (IN) | payer MEDICAID ==
[~2020-05-08] VITALS: Ht 175.3 cm; Wt 93.7 kg
[~2020-05-08 08:14] MED LIST changes: -AMLO-511 PO; +DULO20CA27 PO; -DULO20CA30 PO; +QUET25TA34 PO; +QUET300T18 PO; -SIMV-259 PO
[2020-05-08 10:46] LABS: COVID AG,FIA SOURCE NASOPHARYNGEAL
[2020-05-08] MEDS ORDERED: ZOLPIDEM TARTRATE 10 MG TABLET PO PRN (11:45)
[2020-05-08 12:30] VITALS: BP 169/81
[2020-05-08] MEDS: LORazepam 1 MG TABLET PO PRN (13:38)
[2020-05-08] MEDS: HALOPERIDOL 5 MG TABLET PO PRN (16:07)
[2020-05-08] MEDS ORDERED: INFLUENZA VIRUS VACCINE QVS 2020-21 (6MO+)/PF 60 MCG/0.5 ML SYRINGE IM ONE (16:30)
[2020-05-08 16:45] VITALS: BP 148/75
[2020-05-09 00:54] VITALS: BP 141/77
[2020-05-09] MEDS: LORazepam 1 MG TABLET PO PRN ×2 (05:32→10:32)
[2020-05-09] MEDS: HALOPERIDOL 5 MG TABLET PO PRN (07:57)
[2020-05-09 08:31] LABS: BASOPHILS % (AUTO) 0.6 % (0.0-2.0); EOSINOPHILS % (AUTO) 5.2 % (1.0-6.0); HEMATOCRIT 41.1 % (36-46); HEMOGLOBIN 13.5 g/dL (12.0-16.0); LYMPHOCYTES # (AUTO) 2.3 K/uL (1.0-4.8); LYMPHOCYTES % (AUTO) 22.9 % (22.0-44.0); MEAN CORPUSCULAR HEMOGLOBIN 29.2 pg (26.0-34.0); MEAN CORPUSCULAR HGB CONC 32.8 G/dL (31.0-37.0); MEAN CORPUSCULAR VOLUME 89 fL (80-100); MONOCYTES # (AUTO) 0.6 K/uL (0.1-1.0); MONOCYTES % (AUTO) 6.1 % (2.0-9.0); NEUTROPHILS # (AUTO) 6.4 K/uL (1.8-7.7); NEUTROPHILS % (AUTO) 65.2 % (40.0-70.0); PLATELET COUNT (AUTO) 417 K/uL (150-450); RED BLOOD CELL COUNT(AUTO) 4.62 MIL/uL (4.00-5.20); RED CELL DISTRIBUTION WIDTH 14.3 % (11.5-14.5)
[2020-05-09 08:54] LABS: HEMOGLOBIN A1C 5.5 % (3.8-5.6)
[2020-05-09 08:56] VITALS: BP 164/117
[2020-05-09 08:58] LABS: ALANINE AMINOTRANSFERASE 25 U/L (12-78); ALBUMIN 3.5 g/dL (3.4-5.0); ALKALINE PHOSPHATASE 133 U/L (46-116); ANION GAP 10 mmol/L (8-16); ASPARTATE AMINOTRANSFERASE 17 U/L (15-37); BILIRUBIN,TOTAL 0.2 mg/dL (0.1-1.0); CALCIUM, TOTAL 9.1 mg/dL (8.8-10.5); CARBON DIOXIDE 28 mmol/L (22-29); CHLORIDE 104 mmol/L (98-107); CHOLESTEROL 223 mg/dL (131-200); CREATININE 0.57 mg/dL (0.60-1.30); FREE T4 (FREE THYROXINE) 0.88 ng/dL (0.76-1.46); GLOMERULAR FILTR. RATE CALC > 60 mL/min (>60); GLUCOSE,RANDOM 89 mg/dL (70-110); HDL CHOLESTEROL 45 mg/dL (40-60); LDL CHOL (CALC.) 143 mg/dL (0-130); POTASSIUM 4.1 mmol/L (3.5-5.1); SODIUM SERUM 142 mmol/L (136-145); THYROID STIMULATING HORMONE 4.66 uIU/mL (0.36-3.74); TOTAL PROTEIN, SERUM 7.8 g/dL (6.4-8.2); TRIGLYCERIDES 177 mg/dL (15-150); UREA NITROGEN, BLOOD 15 mg/dL (7-18)
[2020-05-09 09:13] VITALS: BP 146/90
[2020-05-09] MEDS ORDERED: DOCUSATE SODIUM 100 MG CAPSULE PO PRN (09:15)
[2020-05-09] MEDS ORDERED: GuaiFENesin/D-METHORPHAN [SUGAR-FREE] 200-20MG/10 ML SYRUP UDCUP PO PRN (09:15)
[2020-05-09] MEDS ORDERED: CloNIDine HCL 0.1 MG TABLET PO PRN (09:15)
[2020-05-09] MEDS ORDERED: LOPERAMIDE HCL 2 MG CAPSULE PO PRN (09:15)
[2020-05-09] MEDS ORDERED: ALBUTEROL SULFATE HFA 90 MCG/PUFF 8 GM INHALER IH PRN (09:15)
[2020-05-09] MEDS ORDERED: ONDANSETRON HCL 4 MG TABLET PO PRN (09:15)
[2020-05-09] MEDS ORDERED: PETROLATUM,WHITE 28 GM JELLY TP PRN (09:15)
[2020-05-09] MEDS ORDERED: NICOTINE 14 MG/24 HOUR PATCH TD PRN (09:15)
[2020-05-09] MEDS ORDERED: MAGNESIUM HYDROXIDE SUSPENSION 30 ML UDCUP PO PRN (09:15)
[2020-05-09] MEDS ORDERED: MAG HYDROX/AL HYDROX/SIMETH ES 30 ML SUSPENSION UDCUP PO PRN (09:15)
[2020-05-09] MEDS ORDERED: IBUPROFEN 400 MG TABLET PO PRN (09:15)
[2020-05-09] MEDS: ACETAMINOPHEN 325 MG TABLET PO PRN (10:33)
[2020-05-09] MEDS: QUEtiapine FUMARATE 25 MG TABLET PO SCH (11:54)
[2020-05-09] MEDS: BusPIRone HCL 10 MG TABLET PO SCH ×2 (11:54→16:43)
[2020-05-09] MEDS: DULoxetine HCL 30 MG CAPSULE PO SCH (11:54)
[2020-05-09 16:30] VITALS: BP 139/77
[2020-05-09] MEDS: GABAPENTIN 100 MG CAPSULE PO SCH ×2 (16:43→20:25)
[2020-05-09] MEDS: QUEtiapine FUMARATE 200 MG TABLET PO SCH (20:25)
[2020-05-10 01:22] VITALS: BP 90/51
[2020-05-10] MEDS: DULoxetine HCL 30 MG CAPSULE PO SCH (08:04)
[2020-05-10] MEDS: QUEtiapine FUMARATE 25 MG TABLET PO SCH (08:04)
[2020-05-10] MEDS: BusPIRone HCL 10 MG TABLET PO SCH ×2 (08:04→17:17)
[2020-05-10] MEDS: GABAPENTIN 100 MG CAPSULE PO SCH ×3 (08:04→20:23)
[2020-05-10 08:34] VITALS: BP 117/70
[2020-05-10] MEDS: LORazepam 1 MG TABLET PO PRN (13:57)
[2020-05-10 16:31] VITALS: BP 140/78
[2020-05-10] MEDS: QUEtiapine FUMARATE 200 MG TABLET PO SCH (20:23)
[2020-05-11 03:14] VITALS: BP 132/64
[2020-05-11] MEDS: ACETAMINOPHEN 325 MG TABLET PO PRN (04:10)
[2020-05-11] MEDS: DULoxetine HCL 30 MG CAPSULE PO SCH (08:01)
[2020-05-11] MEDS: GABAPENTIN 100 MG CAPSULE PO SCH (08:01)
[2020-05-11] MEDS: BusPIRone HCL 10 MG TABLET PO SCH (08:01)
[2020-05-11] MEDS: QUEtiapine FUMARATE 25 MG TABLET PO SCH (08:01)
[2020-05-11 08:53] VITALS: BP 136/63
[2020-05-11] MEDS ORDERED: BUSP10TA23 PO (09:08)
[2020-05-11] MEDS ORDERED: QUET200T PO (09:08)
[2020-05-11] MEDS ORDERED: QUET25TA PO (09:08)
[2020-05-11] MEDS ORDERED: DULO30CA96 PO (09:08)
[2020-05-11] MEDS ORDERED: GABA-1216 PO (09:19)
== END 2020-05-11 09:45 | disposition home or self-care (01) | DRG 750 ==
LOC: B2S 11:30
PROVIDERS: ADMIT Psychiatry & Neurology Psychiatry; ATTEND Psychiatry & Neurology Psychiatry
DX: F25.9 Schizoaffective disorder, unspecified (principal); F41.9 Anxiety disorder, unspecified; F17.210 Nicotine dependence, cigarettes, uncomplicated; Z98.1 Arthrodesis status; I10 Essential (primary) hypertension; E78.5 Hyperlipidemia, unspecified; M19.90 Unspecified osteoarthritis, unspecified site; Z96.642 Presence of left artificial hip joint; E03.9 Hypothyroidism, unspecified; Z20.822 Contact with and (suspected) exposure to COVID-19; Z23 Encounter for immunization
CPT/HCPCS: 83036; 84439; 84443; 87426; 90686; G0480

== ENCOUNTER 2022-03-10 15:20 | Emergency (ER) | payer BC ==
[~2022-03-10] VITALS: Ht 175.3 cm; Wt 130.0 kg
[~2022-03-10 15:20] MED LIST changes: +BUSP10TA23 PO; +DULO-114 PO; -DULO20CA27 PO; +GABA-1216 PO; -QUET25TA34 PO; -QUET300T18 PO
[2022-03-10 18:26] LABS: APPEARANCE,URINE CLEAR (CLEAR); BILIRUBIN,URINE NEGATIVE (NEGATIVE); GLUCOSE, URINE (UA) NEGATIVE (NEGATIVE); KETONES,URINE NEGATIVE (NEGATIVE); LEUKOCYTE ESTERASE ,URINE NEGATIVE (NEGATIVE); NITRATE,URINE NEGATIVE (NEGATIVE); OCCULT BLOOD,URINE NEGATIVE (NEGATIVE); PROTEIN,URINE NEGATIVE (NEGATIVE); SPECIFIC GRAVITIY, URINE 1.024 (1.003-1.030); UROBILINOGEN,URINE <=1.0 mg/dL (<=1.0)
[2022-03-10 18:43] LABS: BASOPHILS % (AUTO) 0.7 % (0.0-2.0); EOSINOPHILS % (AUTO) 4.2 % (1.0-6.0); HEMATOCRIT 37.2 % (36-46); LYMPHOCYTES # (AUTO) 2.8 K/uL (1.0-4.8); LYMPHOCYTES % (AUTO) 28.9 % (22.0-44.0); MEAN CORPUSCULAR HEMOGLOBIN 29.2 pg (26.0-34.0); MEAN CORPUSCULAR HGB CONC 32.4 G/dL (31.0-37.0); MEAN CORPUSCULAR VOLUME 90 fL (80-100); MONOCYTES # (AUTO) 0.6 K/uL (0.1-1.0); MONOCYTES % (AUTO) 5.8 % (2.0-9.0); NEUTROPHILS # (AUTO) 5.9 K/uL (1.8-7.7); NEUTROPHILS % (AUTO) 60.4 % (40.0-70.0); PLATELET COUNT (AUTO) 378 K/uL (150-450); RED BLOOD CELL COUNT(AUTO) 4.12 MIL/uL (4.00-5.20); RED CELL DISTRIBUTION WIDTH 15.1 % (11.5-14.5)
[2022-03-10 18:51] LABS: CALCIUM, TOTAL 8.2 mg/dL (8.8-10.5); CREATININE 1.12 mg/dL (0.60-1.30); POTASSIUM 4.2 mmol/L (3.5-5.1)
[2022-03-10 18:57] LABS: ALBUMIN 3.6 g/dL (3.4-5.0); BILIRUBIN,TOTAL 0.2 mg/dL (0.1-1.0); TOTAL PROTEIN, SERUM 7.6 g/dL (6.4-8.2)
[2022-03-10] MEDS ORDERED: HYDROCODONE/ACETAMINOPHEN 5-325 MG TABLET PO ONE (19:15)
[2022-03-10 20:10] VITALS: BP 145/83
== END 2022-03-10 20:12 | disposition home or self-care (01) ==
LOC: EMS 15:24
DX: M25.551 Pain in right hip (principal); R53.1 Weakness; I48.91 Unspecified atrial fibrillation; M16.9 Osteoarthritis of hip, unspecified; J45.909 Unspecified asthma, uncomplicated; I10 Essential (primary) hypertension; F32.A Depression, unspecified; F20.9 Schizophrenia, unspecified
CPT/HCPCS: 71045; 72100; 80053; 81003; 85025; 99284; 36415-L1; 36415-TC

== ENCOUNTER 2022-03-27 17:44 | Emergency (ER) | payer MEDICAID ==
[~2022-03-27] VITALS: Ht 175.3 cm; Wt 113.6 kg
[2022-03-27 18:22] VITALS: BP 148/89
[2022-03-27 18:44] LABS: BASOPHILS % (AUTO) 0.9 % (0.0-2.0); EOSINOPHILS % (AUTO) 3.9 % (1.0-6.0); HEMATOCRIT 38.6 % (36-46); HEMOGLOBIN 12.5 g/dL (12.0-16.0); LYMPHOCYTES # (AUTO) 2.7 K/uL (1.0-4.8); MEAN CORPUSCULAR HEMOGLOBIN 29.5 pg (26.0-34.0); MEAN CORPUSCULAR HGB CONC 32.3 G/dL (31.0-37.0); MEAN CORPUSCULAR VOLUME 91 fL (80-100); MONOCYTES # (AUTO) 0.5 K/uL (0.1-1.0); MONOCYTES % (AUTO) 5.1 % (2.0-9.0); NEUTROPHILS # (AUTO) 5.9 K/uL (1.8-7.7); NEUTROPHILS % (AUTO) 62.1 % (40.0-70.0); PLATELET COUNT (AUTO) 389 K/uL (150-450); RED BLOOD CELL COUNT(AUTO) 4.24 MIL/uL (4.00-5.20); RED CELL DISTRIBUTION WIDTH 15.4 % (11.5-14.5)
[2022-03-27] MEDS ORDERED: LIDOCAINE 5% TRANSDERMAL PATCH TD ONE (18:45)
[2022-03-27] MEDS ORDERED: KETOROLAC TROMETHAMINE 30 MG/ML VIAL IM ONE (18:45)
[2022-03-27] MEDS ORDERED: CYCLOBENZAPRINE HCL 10 MG TABLET PO ONE (18:45)
[2022-03-27 20:47] LABS: ANION GAP 10 mmol/L (8-16); CALCIUM, TOTAL 9.5 mg/dL (8.8-10.5); CARBON DIOXIDE 30 mmol/L (22-29); CHLORIDE 98 mmol/L (98-107); CREATININE 1.28 mg/dL (0.60-1.30); GLUCOSE,RANDOM 109 mg/dL (70-110); POTASSIUM 4.3 mmol/L (3.5-5.1); SODIUM SERUM 138 mmol/L (136-145); UREA NITROGEN, BLOOD 15 mg/dL (7-18)
[2022-03-27 20:52] LABS: GLOMERULAR FILTR. RATE CALC 42 mL/min (>60)
[2022-03-27 20:54] LABS: ALANINE AMINOTRANSFERASE 32 U/L (12-78); ALBUMIN 4.2 g/dL (3.4-5.0); ALKALINE PHOSPHATASE 132 U/L (46-116); ASPARTATE AMINOTRANSFERASE 35 U/L (15-37); BILIRUBIN,TOTAL 0.3 mg/dL (0.1-1.0); TOTAL PROTEIN, SERUM 8.9 g/dL (6.4-8.2)
[2022-03-27] MEDS ORDERED: CYCL-448 PO (21:04)
[2022-03-27] MEDS ORDERED: IBUP-1492 PO (21:04)
== END 2022-03-27 23:04 | disposition home or self-care (01) ==
LOC: EMS 18:15
DX: F25.1 Schizoaffective disorder, depressive type (principal); M54.9 Dorsalgia, unspecified; I48.91 Unspecified atrial fibrillation; M19.90 Unspecified osteoarthritis, unspecified site; J45.909 Unspecified asthma, uncomplicated; F31.9 Bipolar disorder, unspecified; I10 Essential (primary) hypertension; Z96.642 Presence of left artificial hip joint; Z98.890 Other specified postprocedural states; Z79.899 Other long term (current) drug therapy
CPT/HCPCS: 99285; 71045; 80053; 85025; 36415; 93005; 96372; G0480; J1885

== ENCOUNTER 2022-03-31 21:00 | Inpatient (IN) | payer MEDICAID ==
[~2022-03-31] VITALS: Ht 175.3 cm; Wt 134.0 kg
[~2022-03-31 21:00] MED LIST changes: +CYCL-448 PO; +IBUP-1492 PO
[2022-03-31 22:40] LABS: BASOPHILS % (AUTO) 0.6 % (0.0-2.0); EOSINOPHILS % (AUTO) 4.1 % (1.0-6.0); HEMATOCRIT 37.5 % (36-46); HEMOGLOBIN 12.2 g/dL (12.0-16.0); LYMPHOCYTES # (AUTO) 2.7 K/uL (1.0-4.8); LYMPHOCYTES % (AUTO) 31.4 % (22.0-44.0); MEAN CORPUSCULAR HEMOGLOBIN 29.7 pg (26.0-34.0); MEAN CORPUSCULAR HGB CONC 32.6 G/dL (31.0-37.0); MEAN CORPUSCULAR VOLUME 91 fL (80-100); MONOCYTES # (AUTO) 0.5 K/uL (0.1-1.0); MONOCYTES % (AUTO) 6.2 % (2.0-9.0); NEUTROPHILS % (AUTO) 57.7 % (40.0-70.0); PLATELET COUNT (AUTO) 327 K/uL (150-450); RED BLOOD CELL COUNT(AUTO) 4.12 MIL/uL (4.00-5.20); RED CELL DISTRIBUTION WIDTH 15.5 % (11.5-14.5)
[2022-03-31 22:56] LABS: ANION GAP 6 mmol/L (8-16); CALCIUM, TOTAL 9.8 mg/dL (8.8-10.5); CARBON DIOXIDE 34 mmol/L (22-29); CHLORIDE 98 mmol/L (98-107); GLUCOSE,RANDOM 108 mg/dL (70-110); POTASSIUM 4.3 mmol/L (3.5-5.1); SODIUM SERUM 138 mmol/L (136-145); UREA NITROGEN, BLOOD 20 mg/dL (7-18)
[2022-03-31 22:58] LABS: GLOMERULAR FILTR. RATE CALC 41 mL/min (>60)
[2022-03-31 23:01] LABS: ALANINE AMINOTRANSFERASE 35 U/L (12-78); ALBUMIN 4.1 g/dL (3.4-5.0); ALKALINE PHOSPHATASE 125 U/L (46-116); ASPARTATE AMINOTRANSFERASE 39 U/L (15-37); BILIRUBIN,TOTAL 0.3 mg/dL (0.1-1.0); TOTAL PROTEIN, SERUM 8.7 g/dL (6.4-8.2)
[2022-03-31 23:30] LABS: AMPHET/METH SCREEN,URINE NEGATIVE (NEGATIVE); BARBITURATE SCREEN, URINE NEGATIVE (NEGATIVE); BENZODIAZEPINES SCREEN,URINE NEGATIVE (NEGATIVE); CANNABINOID SCREEN,URINE NEGATIVE (NEGATIVE); COCAINE SCREEN,URINE NEGATIVE (NEGATIVE); METHADONE SCREEN, URINE NEGATIVE (NEGATIVE); OPIATE SCREEN,URINE NEGATIVE (NEGATIVE)
[2022-03-31 23:33] LABS: PHENCYCLIDINE SCREEN,URINE NEGATIVE (NEGATIVE)
[2022-04-01] MEDS ORDERED: LIDOCAINE 5% TRANSDERMAL PATCH TD ONE
[2022-04-01] MEDS ORDERED: ACETAMINOPHEN 500 MG TABLET PO ONE
[2022-04-01] MEDS ORDERED: ZOLPIDEM TARTRATE 10 MG TABLET PO PRN (00:15)
[2022-04-01] MEDS ORDERED: OLANZapine 5 MG RAPDIS TABLET PO PRN (00:15)
[2022-04-01 01:31] LABS: COVID AG,FIA SOURCE NASOPHARYNGEAL
[2022-04-01] MEDS: LORazepam 2 MG TABLET PO PRN ×3 (03:28→17:09)
[2022-04-01 03:44] VITALS: BP 174/91
[2022-04-01 03:53] VITALS: BP 174/91
[2022-04-01 04:11] VITALS: BP 174/91
[2022-04-01] MEDS ORDERED: BENZOCAINE 10% 7 GM GEL TP PRN (17:15)
[2022-04-01] MEDS ORDERED: IBUPROFEN 600 MG TABLET PO PRN (19:45)
[2022-04-01] MEDS ORDERED: ACETAMINOPHEN 325 MG TABLET PO PRN ×2 (19:45→21:30)
[2022-04-01] MEDS ORDERED: CloNIDine HCL 0.1 MG TABLET PO PRN (19:45)
[2022-04-01] MEDS ORDERED: PROMETHAZINE HCL 25 MG TABLET PO PRN (21:30)
[2022-04-01] MEDS ORDERED: GuaiFENesin/D-METHORPHAN [SUGAR-FREE] 200-20MG/10 ML SYRUP UDCUP PO PRN (21:30)
[2022-04-01] MEDS ORDERED: QUEtiapine FUMARATE 100 MG TABLET PO PRN (21:30)
[2022-04-01] MEDS ORDERED: MAG HYDROX/AL HYDROX/SIMETH ES 30 ML SUSPENSION UDCUP PO PRN (21:30)
[2022-04-01] MEDS ORDERED: TUBERCULIN, PURIFIED PROTEIN DERIVATIVE 5 TU/0.1 ML SYRINGE ID ONE (21:30)
[2022-04-01] MEDS ORDERED: HydrOXYzine PAMOATE 50 MG CAPSULE PO PRN (21:30)
[2022-04-01] MEDS ORDERED: MAGNESIUM HYDROXIDE SUSPENSION 30 ML UDCUP PO PRN (21:30)
[2022-04-01] MEDS ORDERED: LOPERAMIDE HCL 2 MG CAPSULE PO PRN (21:30)
[2022-04-02] MEDS: THIAMINE 100 MG TABLET PO SCH ×2 (08:51→17:05)
[2022-04-02] MEDS: BusPIRone HCL 10 MG TABLET PO SCH ×2 (08:52→17:05)
[2022-04-02] MEDS: QUEtiapine FUMARATE 25 MG TABLET PO SCH ×2 (08:53→17:06)
[2022-04-02] MEDS ORDERED: DULoxetine HCL 20 MG CAPSULE PO SCH (09:00)
[2022-04-02] MEDS ORDERED: FOLIC ACID 1 MG TABLET PO SCH (09:00)
[2022-04-02] MEDS ORDERED: CARVEDILOL 6.25 MG TABLET PO SCH (09:00)
[2022-04-02] MEDS ORDERED: OMEGA-3/DHA/EPA/FISH OIL 1,000 MG CAPSULE PO SCH (09:00)
[2022-04-02] MEDS ORDERED: MULTIVITAMINS WITH MINERALS, THERAPEUTIC TABLET PO SCH (09:00)
[2022-04-02] MEDS: GABAPENTIN 100 MG CAPSULE PO SCH ×3 (09:08→17:06)
[2022-04-02 09:51] VITALS: BP 179/99
[2022-04-02] MEDS ORDERED: CARVEDILOL 12.5 MG TABLET PO SCH (17:00)
[2022-04-02] MEDS ORDERED: APIXABAN 5 MG TABLET PO SCH (17:00)
[2022-04-02] MEDS ORDERED: HydrALAZINE HCL 10 MG TABLET PO PRN (17:00)
[2022-04-02 17:56] VITALS: BP 139/80
[2022-04-02] MEDS ORDERED: MELA5TAB40 PO (19:54)
[2022-04-02] MEDS ORDERED: QUET200T30 PO (19:54)
[2022-04-02] MEDS ORDERED: OMEG-135 PO (19:54)
[2022-04-02] MEDS ORDERED: GABA-1216 PO (19:54)
[2022-04-02] MEDS ORDERED: QUET25TA36 PO (19:54)
[2022-04-02] MEDS ORDERED: DULO20CA71 PO (19:54)
[2022-04-02] MEDS ORDERED: BUSP10TA23 PO (19:54)
[2022-04-02] MEDS ORDERED: MELATONIN 5 MG TABLET PO SCH (21:00)
[2022-04-02] MEDS ORDERED: QUEtiapine FUMARATE 200 MG TABLET PO SCH (21:00)
[2022-04-02 23:06] LABS: GLUCOMETER DEV NAME(LOC) 3E.I 2; GLUCOSE,POINT OF CARE 135 MG/DL (70-110)
[2022-04-03] MEDS ORDERED: VALSARTAN 80 MG TABLET PO SCH (09:00)
[2022-04-03] MEDS ORDERED: SPIRONOLACTONE 25 MG TABLET PO SCH (09:00)
[2022-04-03] MEDS ORDERED: FUROSEMIDE 40 MG TABLET PO SCH (09:00)
== END 2022-04-02 23:15 | disposition short-term general hospital (02) | DRG 750 ==
LOC: EMS 21:00 → 3EI 04-01 00:30
PROVIDERS: ADMIT Psychiatry & Neurology Psychiatry; ATTEND Psychiatry & Neurology Psychiatry
DX: F25.9 Schizoaffective disorder, unspecified (principal); E78.5 Hyperlipidemia, unspecified; M19.90 Unspecified osteoarthritis, unspecified site; I48.91 Unspecified atrial fibrillation; I10 Essential (primary) hypertension; Z96.641 Presence of right artificial hip joint; J45.909 Unspecified asthma, uncomplicated
CPT/HCPCS: 80053; 80307; 82962; 85025; 87081; 99285; G0480; Q9967

== ENCOUNTER 2022-04-02 23:37 | Inpatient (IN) | payer MEDICAID ==
[~2022-04-02] VITALS: Ht 175.3 cm; Wt 133.2 kg
[~2022-04-02 23:37] MED LIST changes: +DULO20CA71 PO; +MELA5TAB40 PO; +OMEG-135 PO; +QUET200T30 PO; +QUET25TA36 PO
[2022-04-03] MEDS ORDERED: 0.9% SODIUM CHLORIDE 10 ML SYRINGE IVP PRN
[2022-04-03 00:23] LABS: BASOPHILS % (AUTO) 0.6 % (0.0-2.0); EOSINOPHILS % (AUTO) 2.7 % (1.0-6.0); HEMATOCRIT 35.8 % (36-46); HEMOGLOBIN 11.7 g/dL (12.0-16.0); LYMPHOCYTES # (AUTO) 2.2 K/uL (1.0-4.8); LYMPHOCYTES % (AUTO) 24.2 % (22.0-44.0); MEAN CORPUSCULAR HEMOGLOBIN 29.5 pg (26.0-34.0); MEAN CORPUSCULAR HGB CONC 32.6 G/dL (31.0-37.0); MEAN CORPUSCULAR VOLUME 90 fL (80-100); MONOCYTES # (AUTO) 0.7 K/uL (0.1-1.0); MONOCYTES % (AUTO) 7.8 % (2.0-9.0); NEUTROPHILS % (AUTO) 64.7 % (40.0-70.0); PLATELET COUNT (AUTO) 327 K/uL (150-450); RED BLOOD CELL COUNT(AUTO) 3.96 MIL/uL (4.00-5.20); RED CELL DISTRIBUTION WIDTH 15.5 % (11.5-14.5)
[2022-04-03 00:38] LABS: INR 1.1 (0.9-1.1)
[2022-04-03 00:39] LABS: LACTIC ACID 0.9 mmol/L (0.4-2.0)
[2022-04-03 00:42] LABS: ALANINE AMINOTRANSFERASE 27 U/L (12-78); ALBUMIN 3.5 g/dL (3.4-5.0); ALKALINE PHOSPHATASE 102 U/L (46-116); ANION GAP 7 mmol/L (8-16); ASPARTATE AMINOTRANSFERASE 31 U/L (15-37); BILIRUBIN,TOTAL 0.3 mg/dL (0.1-1.0); CALCIUM, TOTAL 7.9 mg/dL (8.8-10.5); CARBON DIOXIDE 30 mmol/L (22-29); CHLORIDE 102 mmol/L (98-107); CREATININE 1.78 mg/dL (0.60-1.30); GLUCOSE,RANDOM 105 mg/dL (70-110); POTASSIUM 3.7 mmol/L (3.5-5.1); SODIUM SERUM 139 mmol/L (136-145); UREA NITROGEN, BLOOD 0 mg/dL (7-18)
[2022-04-03 00:43] LABS: B-TYPE NATRIURETIC PEPTIDE 125 pg/mL (0-100)
[2022-04-03 00:44] LABS: GLOMERULAR FILTR. RATE CALC 29 mL/min (>60)
[2022-04-03] MEDS ORDERED: SODIUM CHLORIDE 0.9% 250 ML IV ONE (04:15)
[2022-04-03] MEDS ORDERED: SODIUM CHLORIDE 0.9% 500 ML IV ONE (04:15)
[2022-04-03] MEDS ORDERED: CefTRIAXone 1 GM/DEXTROSE 50 ML IV ONE (04:30)
[2022-04-03] MEDS ORDERED: AZITHROMYCIN 500 MG/NS 250 ML IV ONE (04:30)
[2022-04-03] MEDS ORDERED: MIDODRINE HCL 5 MG TABLET PO ONE (04:45)
[2022-04-03] MEDS ORDERED: SODIUM CHLORIDE 0.9% 1,000 ML IV ONE ×2 (07:45)
[2022-04-03] MEDS ORDERED: ONDANSETRON HCL 4 MG/2 ML VIAL IVP PRN (07:45)
[2022-04-03] MEDS: DOCUSATE SODIUM 100 MG CAPSULE PO SCH ×2 (09:00→20:54)
[2022-04-03] MEDS: APIXABAN 5 MG TABLET PO SCH ×2 (09:26→20:55)
[2022-04-03] MEDS: FAMOTIDINE 20 MG TABLET PO SCH (09:26)
[2022-04-03 11:15] VITALS: BP 111/52
[2022-04-03] MEDS: ACETAMINOPHEN 325 MG TABLET PO PRN (14:51)
[2022-04-03 16:10] VITALS: BP 137/96
[2022-04-03] MEDS: BENZOCAINE 10% 7 GM GEL TP PRN (17:54)
[2022-04-03] MEDS ORDERED: LORazepam 0.5 MG TABLET PO PRN (18:30)
[2022-04-03] MEDS ORDERED: QUEtiapine FUMARATE 25 MG TABLET PO PRN (18:30)
[2022-04-03 21:00] VITALS: BP 140/64
[2022-04-03] MEDS ORDERED: QUEtiapine FUMARATE 200 MG TABLET PO SCH (21:00)
[2022-04-04] MEDS: BENZOCAINE 10% 7 GM GEL TP PRN ×2 (01:04→08:33)
[2022-04-04 04:25] VITALS: BP 123/60
[2022-04-04 07:27] VITALS: BP 116/62
[2022-04-04] MEDS: DOCUSATE SODIUM 100 MG CAPSULE PO SCH (08:23)
[2022-04-04] MEDS: FAMOTIDINE 20 MG TABLET PO SCH (08:30)
[2022-04-04] MEDS: APIXABAN 5 MG TABLET PO SCH (08:30)
[2022-04-04] MEDS: ACETAMINOPHEN 325 MG TABLET PO PRN (08:32)
[2022-04-04] MEDS ORDERED: DULoxetine HCL 20 MG CAPSULE PO SCH (09:00)
[2022-04-04] MEDS ORDERED: QUEtiapine FUMARATE 25 MG TABLET PO SCH (09:00)
[2022-04-04] MEDS ORDERED: APIX5TAB PO (10:33)
[2022-04-04 11:53] VITALS: BP 116/74
[2022-04-04 12:06] LABS: CALCIUM, TOTAL 8.8 mg/dL (8.8-10.5); CREATININE 1.26 mg/dL (0.60-1.30); POTASSIUM 4.2 mmol/L (3.5-5.1)
== END 2022-04-04 16:15 | disposition home or self-care (01) | DRG 204 ==
LOC: EMS 23:38 → AHU 04-03 07:10 → 5S 04-03 11:23
PROVIDERS: ADMIT Internal Medicine; ATTEND Internal Medicine
DX: I95.1 Orthostatic hypotension (principal); N17.9 Acute kidney failure, unspecified; E44.0 Moderate protein-calorie malnutrition; F25.9 Schizoaffective disorder, unspecified; I48.20 Chronic atrial fibrillation, unspecified; E03.9 Hypothyroidism, unspecified; I50.9 Heart failure, unspecified; I11.0 Hypertensive heart disease with heart failure; E66.01 Morbid (severe) obesity due to excess calories; Z68.41 Body mass index [BMI] 40.0-44.9, adult; E78.5 Hyperlipidemia, unspecified; Z96.642 Presence of left artificial hip joint; F32.A Depression, unspecified; J45.909 Unspecified asthma, uncomplicated; Z55.9 Problems related to education and literacy, unspecified; Z59.9 Problem related to housing and economic circumstances, unspecified; Z63.9 Problem related to primary support group, unspecified; Z65.3 Problems related to other legal circumstances; Z79.01 Long term (current) use of anticoagulants
CPT/HCPCS: 70450; 71045; 80048; 80053; 83605; 83880; 84145; 84484; 85025; 85610; 85730; 87040; 87081; 93005; 93306; 99291; G0378; J0456; J0696; J7040; J7050; 36415-L1; 36415-TC

== ENCOUNTER 2022-10-04 14:58 | Emergency (ER) | payer MEDICAID ==
[~2022-10-04] VITALS: Ht 175.3 cm; Wt 113.6 kg
[~2022-10-04 14:58] MED LIST changes: +APIX5TAB PO; -BUSP10TA23 PO; +CEPH-558 PO; -CYCL-448 PO; +DIPH25CA85 PO; -DULO20CA71 PO; -GABA-1216 PO; -IBUP-1492 PO; -QUET200T PO; -QUET25TA PO; +SULF-261 PO
[2022-10-04 15:07] VITALS: TEMP 98.8
[2022-10-04 15:45] VITALS: BP 124/71; PULSE 87; RESP 17
[2022-10-04] MEDS ORDERED: SULF-261 PO (17:24)
[2022-10-04] MEDS ORDERED: CEPH-558 PO (17:24)
== END 2022-10-04 17:00 | disposition home or self-care (01) ==
LOC: EMS 14:59
DX: L73.9 Follicular disorder, unspecified (principal); I48.91 Unspecified atrial fibrillation; M19.90 Unspecified osteoarthritis, unspecified site; J45.909 Unspecified asthma, uncomplicated; F31.9 Bipolar disorder, unspecified; I10 Essential (primary) hypertension; F20.9 Schizophrenia, unspecified; Z96.642 Presence of left artificial hip joint
CPT/HCPCS: 99283; Z7502

== ENCOUNTER 2022-12-12 14:27 | Emergency (ER) | payer MEDICAID ==
[~2022-12-12] VITALS: Ht 175.3 cm; Wt 109.1 kg
[2022-12-12 14:40] VITALS: TEMP 98.2
[2022-12-12] MEDS ORDERED: HYDROCODONE/ACETAMINOPHEN 10-325 MG TABLET PO ONE (15:15)
[2022-12-12] MEDS ORDERED: LIDOCAINE 5% TRANSDERMAL PATCH TD ONE (15:15)
[2022-12-12] MEDS ORDERED: ACET-3385 PO (15:19)
[2022-12-12] MEDS ORDERED: LIDO700A15 TP (15:19)
[2022-12-12 15:44] VITALS: BP 138/68; PULSE 88; RESP 16
== END 2022-12-12 16:08 | disposition home or self-care (01) ==
LOC: EMS 14:27
DX: G89.29 Other chronic pain (principal); M54.50 Low back pain, unspecified; M19.90 Unspecified osteoarthritis, unspecified site; J45.909 Unspecified asthma, uncomplicated; F31.9 Bipolar disorder, unspecified; F20.9 Schizophrenia, unspecified; I48.91 Unspecified atrial fibrillation; I10 Essential (primary) hypertension; Z96.642 Presence of left artificial hip joint
CPT/HCPCS: 99283

== ENCOUNTER 2022-12-13 17:27 | Emergency (ER) | payer MEDICAID ==
[~2022-12-13 17:27] MED LIST changes: +ACET-3385 PO; +LIDO700A15 TP
[2022-12-13 17:58] VITALS: BP 156/82; PULSE 88; RESP 18; TEMP 98.2
[2022-12-14] MEDS ORDERED: CARV3 PO (13:27)
== END 2022-12-13 18:22 | disposition left against medical advice (07) ==
LOC: EMS 17:29
DX: F25.9 Schizoaffective disorder, unspecified (principal); F41.9 Anxiety disorder, unspecified; R00.2 Palpitations; M19.90 Unspecified osteoarthritis, unspecified site; J45.909 Unspecified asthma, uncomplicated; F31.9 Bipolar disorder, unspecified; I10 Essential (primary) hypertension; Z96.642 Presence of left artificial hip joint
CPT/HCPCS: 99283; Z7502

== ENCOUNTER 2022-12-14 13:25 | Emergency (ER) | payer MEDICAID ==
[~2022-12-14] VITALS: Ht 175.3 cm; Wt 102.3 kg
[~2022-12-14 13:25] MED LIST changes: -CEPH-558 PO; -SULF-261 PO
[2022-12-14 13:26] VITALS: BP 153/92; PULSE 102; RESP 16; TEMP 98.4
[2022-12-14] MEDS ORDERED: CARV3 PO (13:27)
== END 2022-12-14 15:47 | disposition left against medical advice (07) ==
LOC: EMS 13:43
DX: M25.562 Pain in left knee (principal); Z53.21 Procedure and treatment not carried out due to patient leaving prior to being seen by health care provider
CPT/HCPCS: 99281; Z7502

== ENCOUNTER 2023-06-09 17:16 | Emergency (ER) | payer MEDICAID ==
[~2023-06-09] VITALS: Ht 165.1 cm; Wt 200.0 kg
[~2023-06-09 17:16] MED LIST changes: +CARV3 PO
[2023-06-09 17:27] VITALS: TEMP 97.6
[2023-06-09 17:30] VITALS: BP 149/91; PULSE 62; RESP 16
[2023-06-09] MEDS ORDERED: IBUP-1492 PO (17:38)
[2023-06-09] MEDS: ACETAMINOPHEN 500 MG TABLET PO ONE (18:14)
[2023-06-09] MEDS: LIDOCAINE 5% TRANSDERMAL PATCH TD ONE (18:14)
== END 2023-06-09 18:20 | disposition home or self-care (01) ==
LOC: EMS 17:16
DX: G89.29 Other chronic pain (principal); I48.91 Unspecified atrial fibrillation; J45.909 Unspecified asthma, uncomplicated; I10 Essential (primary) hypertension; F31.9 Bipolar disorder, unspecified; F20.9 Schizophrenia, unspecified
CPT/HCPCS: 99283

== ENCOUNTER 2024-02-07 11:43 | Emergency (ER) | payer MEDICAID ==
[~2024-02-07 11:43] MED LIST changes: -CARV3 PO; -DIPH25CA85 PO; +IBUP-1492 PO; -MELA5TAB40 PO; -OMEG-135 PO; -QUET25TA36 PO
[2024-02-07 13:07] LABS: BASOPHILS % (AUTO) 0.8 % (0.0-2.0); EOSINOPHILS % (AUTO) 3.5 % (1.0-6.0); HEMOGLOBIN 14.4 g/dL (12.0-16.0); LYMPHOCYTES # (AUTO) 2.6 K/uL (1.0-4.8); LYMPHOCYTES % (AUTO) 28.7 % (22.0-44.0); MEAN CORPUSCULAR HEMOGLOBIN 28.6 pg (26.0-34.0); MEAN CORPUSCULAR VOLUME 89 fL (80-100); MONOCYTES # (AUTO) 0.5 K/uL (0.1-1.0); MONOCYTES % (AUTO) 5.4 % (2.0-9.0); NEUTROPHILS # (AUTO) 5.6 K/uL (1.8-7.7); NEUTROPHILS % (AUTO) 61.6 % (40.0-70.0); PLATELET COUNT (AUTO) 364 K/uL (150-450); RED BLOOD CELL COUNT(AUTO) 5.03 MIL/uL (4.00-5.20); RED CELL DISTRIBUTION WIDTH 17.1 % (11.5-14.5); WHITE BLOOD COUNT (AUTO) 9.1 K/uL (4.5-11.0)
[2024-02-07 13:17] LABS: ANION GAP 12 mmol/L (8-16); CALCIUM, TOTAL 8.8 mg/dL (8.8-10.5); CARBON DIOXIDE 28 mmol/L (22-29); CHLORIDE 100 mmol/L (98-107); CREATININE 1.31 mg/dL (0.60-1.30); GLOMERULAR FILTR. RATE CALC 41 mL/min (>60); GLUCOSE,RANDOM 122 mg/dL (70-110); POTASSIUM 3.4 mmol/L (3.5-5.1); SODIUM SERUM 140 mmol/L (136-145); UREA NITROGEN, BLOOD 14 mg/dL (7-18)
[2024-02-07 13:27] LABS: ALCOHOL, BLOOD (SERUM) < 3 mg/dL (0-10)
== END 2024-02-07 14:27 | disposition left against medical advice (07) ==
LOC: EMS 11:43
DX: R45.851 Suicidal ideations (principal); R44.1 Visual hallucinations; R44.0 Auditory hallucinations; Z53.21 Procedure and treatment not carried out due to patient leaving prior to being seen by health care provider
CPT/HCPCS: 80048; 85025; 36415; G0480; 99283

== ENCOUNTER 2024-02-08 15:47 | Inpatient (IN) | payer MEDICAID ==
[~2024-02-08] VITALS: Ht 175.3 cm; Wt 120.2 kg
[2024-02-09] MEDS ORDERED: HALOPERIDOL 5 MG TABLET PO PRN (04:00)
[2024-02-09] MEDS: LORazepam 2 MG TABLET PO PRN (04:14)
[2024-02-09 05:01] VITALS: BP 125/69; PULSE 63; RESP 18; TEMP 98.2; O2SAT 99
[2024-02-09 08:06] VITALS: BP 136/69; PULSE 66; RESP 16; TEMP 97; O2SAT 95
[2024-02-09] MEDS ORDERED: MAG HYDROX/ALUMINUM HYD/SIMETH ES 30 ML SUSPENSION UDCUP PO PRN (16:15)
[2024-02-09] MEDS ORDERED: PROMETHAZINE HCL 25 MG TABLET PO PRN (16:15)
[2024-02-09] MEDS ORDERED: LOPERAMIDE HCL 2 MG CAPSULE PO PRN (16:15)
[2024-02-09] MEDS ORDERED: GuaiFENesin/D-METHORPHAN [SUGAR-FREE] 200-20MG/10 ML SYRUP UDCUP PO PRN (16:15)
[2024-02-09] MEDS ORDERED: HydrOXYzine PAMOATE 50 MG CAPSULE PO PRN (16:15)
[2024-02-09] MEDS ORDERED: MAGNESIUM HYDROXIDE SUSPENSION 30 ML UDCUP PO PRN (16:15)
[2024-02-09] MEDS: ACAMPROSATE CALCIUM 333 MG DR TABLET PO SCH (17:45)
[2024-02-09] MEDS: PREGABALIN 25 MG CAPSULE PO SCH (17:45)
[2024-02-09] MEDS: THIAMINE 100 MG TABLET PO SCH (17:46)
[2024-02-09 20:00] VITALS: RESP 16
[2024-02-09] MEDS: MELATONIN 5 MG TABLET PO SCH (20:33)
[2024-02-09] MEDS: QUEtiapine FUMARATE 200 MG TABLET PO SCH (20:33)
[2024-02-09] MEDS: OLANZapine 10 MG RAPDIS TABLET PO SCH (20:33)
[2024-02-10] VITALS (9 sets, daily range): BP systolic 79–159; BP diastolic 66–91; PULSE 67–159; RESP 14–17; TEMP 96.5–97; O2SAT 91–95
[2024-02-10] MEDS: CARVEDILOL 3.125 MG TABLET PO SCH (08:42)
[2024-02-10] MEDS: DULoxetine HCL 60 MG CAPSULE PO SCH (08:42)
[2024-02-10] MEDS: APIXABAN 5 MG TABLET PO SCH (08:42)
[2024-02-10] MEDS: FOLIC ACID 1 MG TABLET PO SCH (09:00)
[2024-02-10] MEDS: MULTIVITAMINS WITH MINERALS, THERAPEUTIC TABLET PO SCH (09:00)
[2024-02-10] MEDS: OMEGA-3/DHA/EPA/FISH OIL 1,000 MG CAPSULE PO SCH (09:00)
[2024-02-10] MEDS: HYDROCODONE/ACETAMINOPHEN 5-325 MG TABLET PO PRN (09:35)
[2024-02-10] MEDS: PREGABALIN 25 MG CAPSULE PO SCH (17:08)
[2024-02-10] MEDS: OLANZapine 5 MG RAPDIS TABLET PO SCH (20:51)
[2024-02-11 07:18] VITALS: RESP 16
[2024-02-11 08:18] VITALS: RESP 16
[2024-02-11 08:30] LABS: HEMOGLOBIN A1C 6.3 % (3.8-5.6)
[2024-02-11 08:40] LABS: CHOL/HDL RATIO 6.9 (3.9-5.7); FREE T4 (FREE THYROXINE) 0.2 ng/dL (0.76-1.46)
[2024-02-11 08:54] VITALS: BP 106/63; PULSE 63; RESP 17; TEMP 96.3; O2SAT 97
[2024-02-11] MEDS: TUBERCULIN, PURIFIED PROTEIN DERIVATIVE 5 TU/0.1 ML SYRINGE ID ONE (09:30)
[2024-02-11 09:35] LABS: THYROID STIMULATING HORMONE 149.54 uIU/mL (0.36-3.74)
[2024-02-11] MEDS: LEVOTHYROXINE SODIUM 50 MCG TABLET PO SCH (10:54)
[2024-02-11 20:15] VITALS: BP 121/60; PULSE 87; RESP 18; TEMP 97.9; O2SAT 97
[2024-02-11] MEDS: ROSUVASTATIN CALCIUM 20 MG TABLET PO SCH (20:29)
[2024-02-11] MEDS: OLANZapine 10 MG RAPDIS TABLET PO SCH (20:29)
[2024-02-12 06:25] VITALS: BP 123/78; PULSE 95; RESP 18; TEMP 97.6; O2SAT 96
[2024-02-12 07:42] VITALS: BP 110/52; PULSE 67; RESP 16; TEMP 96.8; O2SAT 95
[2024-02-12 10:58] VITALS: BP 110/52; PULSE 67; RESP 16; TEMP 96.8; O2SAT 95
[2024-02-12 12:51] VITALS: RESP 18
[2024-02-12] MEDS: ACETAMINOPHEN 325 MG TABLET PO PRN (12:51)
[2024-02-12 13:51] VITALS: RESP 18
[2024-02-12] MEDS: HYDROCODONE/ACETAMINOPHEN 5-325 MG TABLET PO PRN (15:43)
[2024-02-12] MEDS: LIDOCAINE 5% TRANSDERMAL PATCH TD SCH (15:45)
[2024-02-12] MEDS: PREGABALIN 25 MG CAPSULE PO SCH (16:09)
[2024-02-12] MEDS: QUEtiapine FUMARATE 100 MG TABLET PO SCH (20:13)
[2024-02-12] MEDS: -LIDODERM PATCH NOTE- MISC SCH (20:16)
[2024-02-12 20:44] VITALS: BP 119/75; PULSE 78; RESP 18; TEMP 97.9
[2024-02-12] MEDS: ZOLPIDEM TARTRATE 10 MG TABLET PO PRN (21:01)
[2024-02-13] VITALS (7 sets, daily range): BP systolic 105–116; BP diastolic 68–73; PULSE 81–84; RESP 17–20; TEMP 97.5–98; O2SAT 95–98
[2024-02-13] MEDS: OLANZapine 5 MG RAPDIS TABLET PO PRN (04:11)
[2024-02-13] MEDS: DULoxetine HCL 20 MG CAPSULE PO SCH (08:19)
[2024-02-13] MEDS ORDERED: LIDOCAINE 5% TRANSDERMAL PATCH TD SCH (09:00)
[2024-02-14 08:49] VITALS: BP 173/90; PULSE 74; RESP 8; TEMP 97.7; O2SAT 94
[2024-02-14 17:02] VITALS: BP 141/79; PULSE 71; RESP 17; TEMP 98
[2024-02-14 18:02] VITALS: BP 147/86; PULSE 78; RESP 18; TEMP 97.8
[2024-02-14 20:13] VITALS: BP 127/76; PULSE 76; RESP 20; TEMP 97.7; O2SAT 97
[2024-02-15] VITALS (8 sets, daily range): BP systolic 109–158; BP diastolic 60–85; PULSE 70–78; RESP 17–19; TEMP 96.9–98.3; O2SAT 91–99
[2024-02-15] MEDS: PREGABALIN 75 MG CAPSULE PO SCH (13:00)
[2024-02-15] MEDS: ETHYL ALCOHOL 62% ANTISEPTIC NASAL SANITIZER 0.6 ML AMPUL NASAL SCH (21:37)
[2024-02-16 01:37] VITALS: BP 149/82; PULSE 88; RESP 20; TEMP 98.3; O2SAT 98
[2024-02-16] MEDS: PREGABALIN 50 MG CAPSULE PO SCH (08:41)
[2024-02-16] MEDS: DULoxetine HCL 30 MG CAPSULE PO SCH (08:42)
[2024-02-16 09:24] VITALS: BP_SYST 117; BP_SYST 134; BP_DIAS 56; BP_DIAS 65; PULSE 74; RESP 18; TEMP 97.3; O2SAT 98
[2024-02-16 20:42] VITALS: PULSE 82; RESP 18; TEMP 97.7; O2SAT 99
[2024-02-17 02:37] VITALS: RESP 18
[2024-02-17 05:52] VITALS: BP 139/72; PULSE 88; RESP 19; TEMP 98.2; O2SAT 98
[2024-02-17 08:50] VITALS: BP 160/95; PULSE 72; RESP 18; TEMP 97.6; O2SAT 97
[2024-02-17] MEDS ORDERED: PREG50 PO (09:54)
[2024-02-17] MEDS ORDERED: QUET100T34 PO (09:54)
[2024-02-17] MEDS ORDERED: ROSU20TA98 PO (09:54)
[2024-02-17] MEDS ORDERED: OMEG100033 PO (09:54)
[2024-02-17] MEDS ORDERED: ACAM333T7 PO (09:54)
[2024-02-17] MEDS ORDERED: LEVO50 PO (09:54)
[2024-02-17] MEDS ORDERED: APIX5TAB PO (09:54)
[2024-02-17] MEDS ORDERED: DULO-114 PO (09:54)
[2024-02-17] MEDS ORDERED: MELA5TAB40 PO (09:54)
[2024-02-17] MEDS ORDERED: OLAN10TA26 PO (09:54)
[2024-02-17] MEDS ORDERED: LIDO700A30 TD (09:54)
== END 2024-02-17 14:49 | disposition home or self-care (01) | DRG 750 ==
LOC: B3A 02-09 01:35 → 3EI 02-13 16:00
PROVIDERS: ADMIT Psychiatry & Neurology Psychiatry; ATTEND Psychiatry & Neurology Psychiatry
PROC: GZHZZZZ Group Psychotherapy (ICD-10-PCS; principal; 2024-02-09)
PROC: GZ56ZZZ Individual Psychotherapy, Supportive (ICD-10-PCS; 2024-02-09)
PROC: GZ58ZZZ Individual Psychotherapy, Cognitive-Behavioral (ICD-10-PCS; 2024-02-09)
DX: F25.0 Schizoaffective disorder, bipolar type (principal); R45.851 Suicidal ideations; E03.9 Hypothyroidism, unspecified; Z20.822 Contact with and (suspected) exposure to COVID-19; F41.9 Anxiety disorder, unspecified; G89.29 Other chronic pain; Z79.899 Other long term (current) drug therapy; J45.909 Unspecified asthma, uncomplicated; I48.91 Unspecified atrial fibrillation; E78.5 Hyperlipidemia, unspecified; I10 Essential (primary) hypertension; E66.9 Obesity, unspecified; Z96.642 Presence of left artificial hip joint; G47.00 Insomnia, unspecified; F10.20 Alcohol dependence, uncomplicated; Y90.9 Presence of alcohol in blood, level not specified; F43.10 Post-traumatic stress disorder, unspecified; Z68.39 Body mass index [BMI] 39.0-39.9, adult; Z79.01 Long term (current) use of anticoagulants; M19.90 Unspecified osteoarthritis, unspecified site
CPT/HCPCS: 73521; 80061; 83036; 84439; 84443; 86592; 87081; 97110; 97116; 97163; 97165; 97530; 97535

== ENCOUNTER 2024-02-08 23:14 | Emergency (ER) | payer MEDICAID ==
[~2024-02-08] VITALS: Ht 175.3 cm; Wt 113.6 kg
[2024-02-08 23:26] VITALS: BP 123/72; PULSE 60; RESP 16; TEMP 98.1; O2SAT 96
[2024-02-08 23:54] LABS: BASOPHILS % (AUTO) 0.6 % (0.0-2.0); HEMATOCRIT 41.7 % (36-46); HEMOGLOBIN 13.9 g/dL (12.0-16.0); LYMPHOCYTES # (AUTO) 3.5 K/uL (1.0-4.8); LYMPHOCYTES % (AUTO) 35.4 % (22.0-44.0); MEAN CORPUSCULAR HEMOGLOBIN 29.6 pg (26.0-34.0); MEAN CORPUSCULAR HGB CONC 33.4 G/dL (31.0-37.0); MEAN CORPUSCULAR VOLUME 89 fL (80-100); MONOCYTES # (AUTO) 0.6 K/uL (0.1-1.0); MONOCYTES % (AUTO) 6.5 % (2.0-9.0); NEUTROPHILS # (AUTO) 5.3 K/uL (1.8-7.7); NEUTROPHILS % (AUTO) 54.5 % (40.0-70.0); PLATELET COUNT (AUTO) 338 K/uL (150-450); RED CELL DISTRIBUTION WIDTH 17.2 % (11.5-14.5); WHITE BLOOD COUNT (AUTO) 9.8 K/uL (4.5-11.0)
[2024-02-09 00:02] LABS: ANION GAP 5 mmol/L (8-16); CALCIUM, TOTAL 9.4 mg/dL (8.8-10.5); CARBON DIOXIDE 32 mmol/L (22-29); CHLORIDE 102 mmol/L (98-107); CREATININE 1.22 mg/dL (0.60-1.30); GLOMERULAR FILTR. RATE CALC 44 mL/min (>60); GLUCOSE,RANDOM 103 mg/dL (70-110); POTASSIUM 3.8 mmol/L (3.5-5.1); SODIUM SERUM 139 mmol/L (136-145); UREA NITROGEN, BLOOD 17 mg/dL (7-18)
[2024-02-09 00:10] LABS: TROPONIN I-HIGH SENSITIVITY 7 ng/L (<51)
[2024-02-09 00:11] LABS: COVID AG,FIA SOURCE NASAL SWAB
[2024-02-09 00:15] LABS: APPEARANCE,URINE HAZY (CLEAR); BILIRUBIN,URINE NEGATIVE (NEGATIVE); COLOR,URINE YELLOW (YELLOW); GLUCOSE, URINE (UA) NEGATIVE (NEGATIVE); KETONES,URINE NEGATIVE (NEGATIVE); LEUKOCYTE ESTERASE ,URINE NEGATIVE (NEGATIVE); NITRATE,URINE NEGATIVE (NEGATIVE); OCCULT BLOOD,URINE NEGATIVE (NEGATIVE); PROTEIN,URINE 30-70 mg/dL (NEGATIVE); SPECIFIC GRAVITIY, URINE 1.032 (1.003-1.030)
[2024-02-09 00:18] LABS: ALCOHOL, BLOOD (SERUM) < 3 mg/dL (0-10)
[2024-02-09 00:19] LABS: BACTERIA,URINE Rare /HPF (None Seen); RBC,URINE 0-2 /HPF (0-2); WBC,URINE 0-2 /HPF (0-5)
[2024-02-09 00:20] LABS: B-TYPE NATRIURETIC PEPTIDE 10 pg/mL (0-100)
[2024-02-09 00:31] LABS: SARS-COV2 (COVID) ANTIGEN,FIA Negative (Negative)
[2024-02-09] MEDS: APIXABAN 5 MG TABLET PO ONE (00:31)
[2024-02-09] MEDS: QUEtiapine FUMARATE 100 MG TABLET PO ONE (00:31)
[2024-02-09 00:34] LABS: ALCOHOL, URINE DRUG SCREEN NEGATIVE (NEGATIVE); AMPHET/METH SCREEN,URINE NEGATIVE (NEGATIVE); BARBITURATE SCREEN, URINE NEGATIVE (NEGATIVE); BENZODIAZEPINES SCREEN,URINE NEGATIVE (NEGATIVE); CANNABINOID SCREEN,URINE NEGATIVE (NEGATIVE); COCAINE SCREEN,URINE NEGATIVE (NEGATIVE); METHADONE SCREEN, URINE NEGATIVE (NEGATIVE); OPIATE SCREEN,URINE NEGATIVE (NEGATIVE); PHENCYCLIDINE SCREEN,URINE NEGATIVE (NEGATIVE)
[2024-02-09] MEDS: HYDROCODONE/ACETAMINOPHEN 5-325 MG TABLET PO ONE (01:17)
[2024-02-09] MEDS ORDERED: APIXABAN 5 MG TABLET PO ONE (09:00)
== END 2024-02-09 02:40 | disposition home or self-care (01) ==
LOC: EMS 23:14 → EDBEDREQ 02-09 01:08 → EMS 02-09 02:40
DX: F25.1 Schizoaffective disorder, depressive type (principal); I10 Essential (primary) hypertension; I48.91 Unspecified atrial fibrillation; J45.909 Unspecified asthma, uncomplicated; R44.0 Auditory hallucinations; Z79.01 Long term (current) use of anticoagulants; M19.90 Unspecified osteoarthritis, unspecified site; Z98.890 Other specified postprocedural states; Z20.822 Contact with and (suspected) exposure to COVID-19
CPT/HCPCS: 99285; 87426; 80048; 81001; 83880; 84484; 85025; 36415; 93005; 80307; G0480

== ENCOUNTER 2024-02-18 17:13 | Emergency (ER) | payer MEDICARE, MEDICAID ==
[~2024-02-18] VITALS: Ht 175.3 cm; Wt 113.0 kg
[~2024-02-18 17:13] MED LIST changes: +ACAM333T7 PO; -ACET-3385 PO; -IBUP-1492 PO; +LEVO50 PO; -LIDO700A15 TP; +LIDO700A30 TD; +MELA5TAB40 PO; +OLAN10TA26 PO; +OMEG100033 PO; +PREG50 PO; +QUET100T34 PO; -QUET200T30 PO; +ROSU20TA98 PO
[2024-02-18 17:27] VITALS: BP 129/81; PULSE 90; RESP 20; TEMP 98.1; O2SAT 96
== END 2024-02-18 20:08 | disposition left against medical advice (07) ==
LOC: EMS 17:13
DX: R45.851 Suicidal ideations (principal); Z53.21 Procedure and treatment not carried out due to patient leaving prior to being seen by health care provider

== ENCOUNTER 2024-05-09 20:50 | Emergency (ER) | payer MEDICARE, MEDICAID ==
[2024-05-09 21:28] VITALS: BP 114/74; PULSE 78; RESP 16; TEMP 98; O2SAT 96
== END 2024-05-09 21:00 | disposition left against medical advice (07) ==
LOC: EMS 20:50
DX: R45.851 Suicidal ideations (principal); Z53.21 Procedure and treatment not carried out due to patient leaving prior to being seen by health care provider

== ENCOUNTER 2024-05-22 16:17 | Inpatient (IN) | payer MEDICARE, MEDICAID ==
[~2024-05-22] VITALS: Ht 175.3 cm; Wt 117.6 kg
[2024-05-22 17:05] LABS: BASOPHILS % (AUTO) 0.5 % (0.0-2.0); EOSINOPHILS % (AUTO) 2.8 % (1.0-6.0); HEMATOCRIT 38.5 % (36-46); HEMOGLOBIN 12.6 g/dL (12.0-16.0); LYMPHOCYTES # (AUTO) 2.9 K/uL (1.0-4.8); LYMPHOCYTES % (AUTO) 27.8 % (22.0-44.0); MEAN CORPUSCULAR HGB CONC 32.7 G/dL (31.0-37.0); MEAN CORPUSCULAR VOLUME 92 fL (80-100); MONOCYTES # (AUTO) 0.6 K/uL (0.1-1.0); MONOCYTES % (AUTO) 5.6 % (2.0-9.0); NEUTROPHILS # (AUTO) 6.5 K/uL (1.8-7.7); NEUTROPHILS % (AUTO) 63.3 % (40.0-70.0); PLATELET COUNT (AUTO) 448 K/uL (150-450); RED BLOOD CELL COUNT(AUTO) 4.19 MIL/uL (4.00-5.20); RED CELL DISTRIBUTION WIDTH 12.6 % (11.5-14.5); WHITE BLOOD COUNT (AUTO) 10.3 K/uL (4.5-11.0)
[2024-05-22 17:12] LABS: ANION GAP 3 mmol/L (8-16); CALCIUM, TOTAL 9.5 mg/dL (8.8-10.5); CARBON DIOXIDE 32 mmol/L (22-29); CHLORIDE 101 mmol/L (98-107); CREATININE 0.81 mg/dL (0.60-1.30); GLOMERULAR FILTR. RATE CALC > 60 mL/min (>60); GLUCOSE,RANDOM 118 mg/dL (70-110); POTASSIUM 4.3 mmol/L (3.5-5.1); SODIUM SERUM 136 mmol/L (136-145); UREA NITROGEN, BLOOD 15 mg/dL (7-18)
[2024-05-22 17:18] LABS: ALCOHOL, BLOOD (SERUM) < 3 mg/dL (0-10)
[2024-05-22] MEDS: HYDROCODONE/ACETAMINOPHEN 5-325 MG TABLET PO ONE (17:49)
[2024-05-22] MEDS ORDERED: HALOPERIDOL 5 MG TABLET PO PRN (18:00)
[2024-05-22 18:21] LABS: APPEARANCE,URINE CLEAR (CLEAR); BILIRUBIN,URINE NEGATIVE (NEGATIVE); COLOR,URINE LIGHT YELLOW (YELLOW); GLUCOSE, URINE (UA) NEGATIVE (NEGATIVE); KETONES,URINE NEGATIVE (NEGATIVE); LEUKOCYTE ESTERASE ,URINE NEGATIVE (NEGATIVE); NITRATE,URINE NEGATIVE (NEGATIVE); OCCULT BLOOD,URINE NEGATIVE (NEGATIVE); PROTEIN,URINE NEGATIVE (NEGATIVE); SPECIFIC GRAVITIY, URINE 1.021 (1.003-1.030); UROBILINOGEN,URINE <=1.0 mg/dL (<=1.0)
[2024-05-22 18:27] LABS: AMPHET/METH SCREEN,URINE NEGATIVE (NEGATIVE); BARBITURATE SCREEN, URINE NEGATIVE (NEGATIVE); BENZODIAZEPINES SCREEN,URINE NEGATIVE (NEGATIVE); CANNABINOID SCREEN,URINE POSITIVE (NEGATIVE); COCAINE SCREEN,URINE NEGATIVE (NEGATIVE); METHADONE SCREEN, URINE NEGATIVE (NEGATIVE); OPIATE SCREEN,URINE NEGATIVE (NEGATIVE); PHENCYCLIDINE SCREEN,URINE NEGATIVE (NEGATIVE)
[2024-05-22 18:30] LABS: ALCOHOL, URINE DRUG SCREEN NEGATIVE (NEGATIVE)
[2024-05-22 22:05] VITALS: O2SAT 97
[2024-05-22] MEDS: ZOLPIDEM TARTRATE 10 MG TABLET PO PRN (23:28)
[2024-05-22 23:57] VITALS: BP 151/64; PULSE 64; RESP 18; TEMP 97.5; O2SAT 97
[2024-05-22 23:59] VITALS: BP 156/64; PULSE 60; RESP 17; TEMP 97.7; O2SAT 96
[2024-05-23] MEDS ORDERED: INFLUENZA VIRUS VACCINE TVS (6MO+) 2024-25/PF 45 MCG/0.5 ML SYRINGE IM. ONE (02:30)
[2024-05-23] MEDS ORDERED: PNEUMOCOCCAL VACCINE POLYVALENT 0.5 ML SYRINGE [PPSV23] IM. ONE (07:45)
[2024-05-23 08:00] VITALS: BP 148/72; PULSE 70; RESP 18; TEMP 96.2; O2SAT 98
[2024-05-23] MEDS: LORazepam 2 MG TABLET PO PRN (08:07)
[2024-05-23] MEDS: LEVOTHYROXINE SODIUM 50 MCG TABLET PO SCH (08:54)
[2024-05-23] MEDS: OMEGA-3/DHA/EPA/FISH OIL 1,000 MG CAPSULE PO SCH (08:54)
[2024-05-23] MEDS: APIXABAN 5 MG TABLET PO SCH (08:54)
[2024-05-23] MEDS: ACAMPROSATE CALCIUM 333 MG DR TABLET PO SCH (08:54)
[2024-05-23] MEDS: PREGABALIN 50 MG CAPSULE PO SCH (09:16)
[2024-05-23] MEDS ORDERED: MAG HYDROX/ALUMINUM HYD/SIMETH ES 30 ML SUSPENSION UDCUP PO PRN ×2 (11:30→12:15)
[2024-05-23] MEDS ORDERED: ONDANSETRON 4 MG TABLET PO PRN ×2 (11:30→12:15)
[2024-05-23] MEDS ORDERED: OMEPRAZOLE 20 MG CAPSULE PO PRN ×2 (11:30→12:15)
[2024-05-23] MEDS ORDERED: DOCUSATE SODIUM 100 MG CAPSULE PO PRN ×2 (11:30→12:15)
[2024-05-23] MEDS ORDERED: ALBUTEROL SULFATE HFA 90 MCG/PUFF 8 GM INHALER IH PRN ×2 (11:30→12:15)
[2024-05-23] MEDS ORDERED: BACITRACIN 28 GM OINTMENT TP PRN ×2 (11:30→12:15)
[2024-05-23] MEDS ORDERED: CloNIDine HCL 0.1 MG TABLET PO PRN ×2 (11:30→12:15)
[2024-05-23] MEDS ORDERED: BENZOCAINE/MENTHOL [CEPACOL] LOZENGE PO PRN ×2 (11:30→12:15)
[2024-05-23] MEDS ORDERED: LOPERAMIDE HCL 2 MG CAPSULE PO PRN ×2 (11:30→12:15)
[2024-05-23] MEDS ORDERED: MAGNESIUM HYDROXIDE SUSPENSION 30 ML UDCUP PO PRN ×2 (11:30→12:15)
[2024-05-23] MEDS ORDERED: PETROLATUM,WHITE 28 GM JELLY TP PRN ×2 (11:30→12:15)
[2024-05-23] MEDS: QUEtiapine FUMARATE 25 MG TABLET PO SCH (11:47)
[2024-05-23] MEDS: BuPROPion HCL XL 150 MG ER TABLET PO SCH (11:47)
[2024-05-23] MEDS: DULoxetine HCL 30 MG CAPSULE PO SCH (11:47)
[2024-05-23] MEDS ORDERED: ACETAMINOPHEN 325 MG TABLET PO PRN (12:15)
[2024-05-23] MEDS: CARVEDILOL 6.25 MG TABLET PO SCH (17:12)
[2024-05-23 17:21] VITALS: BP 120/60; PULSE 98; RESP 18
[2024-05-23] MEDS: TraMADol HCL 50 MG TABLET PO PRN (18:38)
[2024-05-23 18:39] VITALS: BP 105/60; PULSE 77; RESP 18
[2024-05-23 19:41] VITALS: RESP 18
[2024-05-23 20:38] VITALS: BP 122/65; PULSE 95; RESP 16; TEMP 97.8; O2SAT 95
[2024-05-23] MEDS: ROSUVASTATIN CALCIUM 20 MG TABLET PO SCH (20:50)
[2024-05-23] MEDS: QUEtiapine FUMARATE 200 MG TABLET PO SCH (20:50)
[2024-05-24 08:10] VITALS: RESP 18
[2024-05-24 08:34] VITALS: BP 152/66; PULSE 71; RESP 18; TEMP 98; O2SAT 97
[2024-05-24 09:10] VITALS: RESP 18
[2024-05-24] MEDS: CARVEDILOL 3.125 MG TABLET PO SCH (09:12)
[2024-05-24 09:52] LABS: ALANINE AMINOTRANSFERASE 42 U/L (12-78); ALKALINE PHOSPHATASE 209 U/L (46-116); ANION GAP 7 mmol/L (8-16); ASPARTATE AMINOTRANSFERASE 29 U/L (15-37); BILIRUBIN,TOTAL 0.3 mg/dL (0.1-1.0); CALCIUM, TOTAL 8.8 mg/dL (8.8-10.5); CARBON DIOXIDE 32 mmol/L (22-29); CHLORIDE 105 mmol/L (98-107); CHOL/HDL RATIO 5.3 (3.9-5.7); CHOLESTEROL 259 mg/dL (131-200); CREATININE 0.66 mg/dL (0.60-1.30); GLOMERULAR FILTR. RATE CALC > 60 mL/min (>60); GLUCOSE,RANDOM 90 mg/dL (70-110); HDL CHOLESTEROL 49 mg/dL (40-60); LDL CHOL (CALC.) 177 mg/dL (0-130); POTASSIUM 4.2 mmol/L (3.5-5.1); SODIUM SERUM 144 mmol/L (136-145); THYROID STIMULATING HORMONE 2.56 uIU/mL (0.36-3.74); TOTAL PROTEIN, SERUM 7.4 g/dL (6.4-8.2); TRIGLYCERIDES 165 mg/dL (15-150); UREA NITROGEN, BLOOD 15 mg/dL (7-18)
[2024-05-24 10:23] LABS: ALBUMIN 3.1 g/dL (3.4-5.0)
[2024-05-24 15:39] VITALS: BP 126/79; PULSE 70; RESP 18
[2024-05-24 16:43] VITALS: BP 154/78; PULSE 70; RESP 18
[2024-05-24 20:32] VITALS: BP 126/79; PULSE 70; RESP 18; TEMP 97.7; O2SAT 95
[2024-05-25 06:46] VITALS: BP 129/72; PULSE 81; RESP 18; TEMP 97.6
[2024-05-25 08:00] VITALS: RESP 18; O2SAT 98
[2024-05-25 08:27] VITALS: BP 116/60; PULSE 70; RESP 17; TEMP 97.5; O2SAT 96
[2024-05-25 13:32] VITALS: RESP 17; O2SAT 98
[2024-05-25 14:32] VITALS: RESP 17; O2SAT 98
[2024-05-25 20:37] VITALS: BP 142/64; PULSE 68; RESP 18; TEMP 97.5; O2SAT 95
[2024-05-26 04:00] VITALS: BP 135/63; PULSE 76; RESP 18; TEMP 97.8; O2SAT 96
[2024-05-26 08:13] VITALS: BP 128/72; PULSE 81; RESP 16; TEMP 97.6; O2SAT 96
[2024-05-26] MEDS: ACETAMINOPHEN 325 MG TABLET PO PRN (12:30)
[2024-05-26 14:30] VITALS: PULSE 78
[2024-05-26] MEDS: IBUPROFEN 600 MG TABLET PO PRN (16:16)
[2024-05-26 18:16] VITALS: PULSE 74
[2024-05-26 20:37] VITALS: BP 122/68; PULSE 84; RESP 16; TEMP 97.7; O2SAT 95
[2024-05-26] MEDS: NICOTINE POLACRILEX 2 MG LOZENGE PO PRN (21:06)
[2024-05-27] VITALS (9 sets, daily range): BP systolic 122–129; BP diastolic 69–79; PULSE 74–79; RESP 16–17; TEMP 97.7–98.3; O2SAT 95–100
[2024-05-28 01:08] VITALS: BP 119/62; PULSE 76; RESP 16; TEMP 97.1; O2SAT 96
[2024-05-28 02:08] VITALS: RESP 17
[2024-05-28 05:57] VITALS: BP 122/59; PULSE 72; RESP 16; TEMP 97.2; O2SAT 95
[2024-05-28 07:03] VITALS: RESP 16
[2024-05-28 08:53] VITALS: BP 124/63; PULSE 75; RESP 16; TEMP 97.3; O2SAT 95
[2024-05-28] MEDS ORDERED: QUET300T2 PO (09:21)
[2024-05-28] MEDS ORDERED: BUPR-433 PO (09:23)
[2024-05-28] MEDS ORDERED: LEVO50TA11 PO (09:40)
[2024-05-28] MEDS ORDERED: APIX5TAB PO (09:42)
[2024-05-28] MEDS ORDERED: CARV6.2534 PO (09:43)
[2024-05-28] MEDS ORDERED: ROSU20TA98 PO (09:45)
[2024-05-28] MEDS ORDERED: ACAM333T7 PO (09:46)
[2024-05-28] MEDS ORDERED: PREG50 PO (09:48)
[2024-05-28] MEDS ORDERED: OMEG100033 PO (09:50)
[2024-05-28] MEDS ORDERED: DULO-113 PO (09:52)
[2024-05-28] MEDS ORDERED: LEVO125T95 PO (10:02)
== END 2024-05-28 10:43 | disposition home or self-care (01) | DRG 885 ==
LOC: EMS 16:17 → B2S 22:56 → B2X 05-23 10:39 → UNDODISIN 05-23 11:07
PROVIDERS: ADMIT Psychiatry & Neurology Psychiatry; ATTEND Psychiatry & Neurology Psychiatry
PROC: GZHZZZZ Group Psychotherapy (ICD-10-PCS; principal; 2024-05-23)
PROC: GZ51ZZZ Individual Psychotherapy, Behavioral (ICD-10-PCS; 2024-05-23)
DX: F25.1 Schizoaffective disorder, depressive type (principal); R45.851 Suicidal ideations; E78.5 Hyperlipidemia, unspecified; K21.9 Gastro-esophageal reflux disease without esophagitis; G47.00 Insomnia, unspecified; E03.9 Hypothyroidism, unspecified; E66.9 Obesity, unspecified; K59.00 Constipation, unspecified; I10 Essential (primary) hypertension; G89.29 Other chronic pain; M54.50 Low back pain, unspecified; E11.9 Type 2 diabetes mellitus without complications; F41.9 Anxiety disorder, unspecified; F31.9 Bipolar disorder, unspecified; Z68.38 Body mass index [BMI] 38.0-38.9, adult; F12.10 Cannabis abuse, uncomplicated; I48.91 Unspecified atrial fibrillation; Z98.1 Arthrodesis status; M19.90 Unspecified osteoarthritis, unspecified site
CPT/HCPCS: 80048; 80053; 80061; 80307; 84443; 85025; 99285; G0480

== ENCOUNTER 2024-07-10 16:50 | Emergency (ER) | payer MEDICARE, MEDICAID ==
[~2024-07-10] VITALS: Ht 175.3 cm; Wt 118.2 kg
[~2024-07-10 16:50] MED LIST changes: +BUPR-433 PO; +CARV6.2534 PO; -DULO-114 PO; +DULO60CA98 PO; +LEVO125T95 PO; -LEVO50 PO; -LIDO700A30 TD; -MELA5TAB40 PO; -OLAN10TA26 PO; -QUET100T34 PO; +QUET300T2 PO
[2024-07-10 16:57] VITALS: BP 135/77; PULSE 78; RESP 18; TEMP 97.9; O2SAT 99
[2024-07-10] MEDS ORDERED: HYDR-4062 PO (16:58)
[2024-07-10 18:16] LABS: BASOPHILS % (AUTO) 0.4 % (0.0-2.0); EOSINOPHILS % (AUTO) 2.8 % (1.0-6.0); HEMATOCRIT 39.1 % (36-46); LYMPHOCYTES # (AUTO) 3.6 K/uL (1.0-4.8); LYMPHOCYTES % (AUTO) 29.8 % (22.0-44.0); MEAN CORPUSCULAR HEMOGLOBIN 28.9 pg (26.0-34.0); MEAN CORPUSCULAR HGB CONC 33.3 G/dL (31.0-37.0); MEAN CORPUSCULAR VOLUME 87 fL (80-100); MONOCYTES # (AUTO) 0.9 K/uL (0.1-1.0); MONOCYTES % (AUTO) 7.2 % (2.0-9.0); NEUTROPHILS # (AUTO) 7.1 K/uL (1.8-7.7); NEUTROPHILS % (AUTO) 59.8 % (40.0-70.0); PLATELET COUNT (AUTO) 417 K/uL (150-450); RED BLOOD CELL COUNT(AUTO) 4.51 MIL/uL (4.00-5.20); RED CELL DISTRIBUTION WIDTH 12.8 % (11.5-14.5); WHITE BLOOD COUNT (AUTO) 11.9 K/uL (4.5-11.0)
[2024-07-10 18:30] LABS: ALCOHOL, BLOOD (SERUM) < 3 mg/dL (0-10)
[2024-07-10 18:41] LABS: ANION GAP 10 mmol/L (8-16); CALCIUM, TOTAL 9.7 mg/dL (8.8-10.5); CARBON DIOXIDE 33 mmol/L (22-29); CHLORIDE 100 mmol/L (98-107); CREATININE 0.77 mg/dL (0.60-1.30); GLOMERULAR FILTR. RATE CALC > 60 mL/min (>60); GLUCOSE,RANDOM 104 mg/dL (70-110); POTASSIUM 4.8 mmol/L (3.5-5.1); SODIUM SERUM 143 mmol/L (136-145); UREA NITROGEN, BLOOD 16 mg/dL (7-18)
[2024-07-11] MEDS ORDERED: LEVO50 PO (20:15)
== END 2024-07-10 19:51 | disposition left against medical advice (07) ==
LOC: EMS 16:50
DX: R45.851 Suicidal ideations (principal); Z53.21 Procedure and treatment not carried out due to patient leaving prior to being seen by health care provider
CPT/HCPCS: 36415; 80048; 85025; G0480

== ENCOUNTER 2024-07-11 13:32 | Inpatient (IN) | payer MEDICARE, MEDICAID ==
[~2024-07-11] VITALS: Ht 165.1 cm; Wt 117.1 kg
[~2024-07-11 13:32] MED LIST changes: -ACAM333T7 PO; -BUPR-433 PO; +HYDR-4062 PO; -ROSU20TA98 PO
[2024-07-11 14:32] LABS: COVID AG,FIA SOURCE NASAL SWAB
[2024-07-11 14:36] LABS: BASOPHILS % (AUTO) 0.6 % (0.0-2.0); HEMATOCRIT 38.8 % (36-46); HEMOGLOBIN 12.8 g/dL (12.0-16.0); LYMPHOCYTES # (AUTO) 2.7 K/uL (1.0-4.8); LYMPHOCYTES % (AUTO) 24.3 % (22.0-44.0); MEAN CORPUSCULAR HEMOGLOBIN 28.8 pg (26.0-34.0); MEAN CORPUSCULAR VOLUME 87 fL (80-100); MONOCYTES # (AUTO) 0.8 K/uL (0.1-1.0); MONOCYTES % (AUTO) 6.9 % (2.0-9.0); NEUTROPHILS # (AUTO) 7.2 K/uL (1.8-7.7); NEUTROPHILS % (AUTO) 65.2 % (40.0-70.0); PLATELET COUNT (AUTO) 406 K/uL (150-450); RED BLOOD CELL COUNT(AUTO) 4.44 MIL/uL (4.00-5.20); RED CELL DISTRIBUTION WIDTH 12.9 % (11.5-14.5); WHITE BLOOD COUNT (AUTO) 11.1 K/uL (4.5-11.0)
[2024-07-11 14:48] LABS: ANION GAP 7 mmol/L (8-16); CALCIUM, TOTAL 9.1 mg/dL (8.8-10.5); CARBON DIOXIDE 30 mmol/L (22-29); CHLORIDE 103 mmol/L (98-107); CREATININE 0.79 mg/dL (0.60-1.30); GLOMERULAR FILTR. RATE CALC > 60 mL/min (>60); GLUCOSE,RANDOM 99 mg/dL (70-110); POTASSIUM 4.6 mmol/L (3.5-5.1); SODIUM SERUM 140 mmol/L (136-145); UREA NITROGEN, BLOOD 22 mg/dL (7-18)
[2024-07-11 14:48] LABS: APPEARANCE,URINE CLEAR (CLEAR); BILIRUBIN,URINE NEGATIVE (NEGATIVE); COLOR,URINE LIGHT YELLOW (YELLOW); GLUCOSE, URINE (UA) NEGATIVE (NEGATIVE); KETONES,URINE NEGATIVE (NEGATIVE); LEUKOCYTE ESTERASE ,URINE NEGATIVE (NEGATIVE); NITRATE,URINE NEGATIVE (NEGATIVE); OCCULT BLOOD,URINE NEGATIVE (NEGATIVE); PROTEIN,URINE NEGATIVE (NEGATIVE); SPECIFIC GRAVITIY, URINE 1.022 (1.003-1.030); UROBILINOGEN,URINE <=1.0 mg/dL (<=1.0)
[2024-07-11 14:53] LABS: AMPHET/METH SCREEN,URINE NEGATIVE (NEGATIVE); BARBITURATE SCREEN, URINE NEGATIVE (NEGATIVE); BENZODIAZEPINES SCREEN,URINE NEGATIVE (NEGATIVE); CANNABINOID SCREEN,URINE NEGATIVE (NEGATIVE); COCAINE SCREEN,URINE NEGATIVE (NEGATIVE); METHADONE SCREEN, URINE NEGATIVE (NEGATIVE); OPIATE SCREEN,URINE NEGATIVE (NEGATIVE); PHENCYCLIDINE SCREEN,URINE NEGATIVE (NEGATIVE)
[2024-07-11 14:53] LABS: SARS-COV2 (COVID) ANTIGEN,FIA Negative (Negative)
[2024-07-11 14:54] LABS: ALCOHOL, URINE DRUG SCREEN NEGATIVE (NEGATIVE)
[2024-07-11 15:04] LABS: ALCOHOL, BLOOD (SERUM) < 3 mg/dL (0-10)
[2024-07-11 15:09] LABS: THYROID STIMULATING HORMONE 0.41 uIU/mL (0.36-3.74)
[2024-07-11] MEDS: HYDROCODONE/ACETAMINOPHEN 5-325 MG TABLET PO ONE (16:15)
[2024-07-11] MEDS: APIXABAN 5 MG TABLET PO ONE (20:15)
[2024-07-11] MEDS ORDERED: ZOLPIDEM TARTRATE 10 MG TABLET PO PRN (20:15)
[2024-07-11] MEDS ORDERED: LEVO50 PO (20:15)
[2024-07-11] MEDS: carvediloL 6.25 MG TABLET PO ONE (20:15)
[2024-07-11] MEDS ORDERED: LOPERAMIDE HCL 2 MG CAPSULE PO PRN (22:15)
[2024-07-11] MEDS ORDERED: ACETAMINOPHEN 325 MG TABLET PO PRN (22:15)
[2024-07-11] MEDS ORDERED: PROMETHAZINE HCL 25 MG TABLET PO PRN (22:15)
[2024-07-11] MEDS ORDERED: MAG HYDROX/ALUMINUM HYD/SIMETH ES 30 ML SUSPENSION UDCUP PO PRN (22:15)
[2024-07-11] MEDS ORDERED: MAGNESIUM HYDROXIDE SUSPENSION 30 ML UDCUP PO PRN (22:15)
[2024-07-11] MEDS ORDERED: HydrOXYzine PAMOATE 50 MG CAPSULE PO PRN (22:15)
[2024-07-11] MEDS ORDERED: GuaiFENesin/D-METHORPHAN [SUGAR-FREE] 200-20MG/10 ML SYRUP UDCUP PO PRN (22:15)
[2024-07-12 02:48] VITALS: BP 159/88; PULSE 71; RESP 16; TEMP 97.8; O2SAT 96
[2024-07-12] MEDS ORDERED: TUBERCULIN, PURIFIED PROTEIN DERIVATIVE 5 TU/0.1 ML SYRINGE ID ONE (09:00)
[2024-07-12] MEDS: NALTREXONE HCL 50 MG TABLET PO SCH (09:01)
[2024-07-12] MEDS: MULTIVITAMINS WITH MINERALS, THERAPEUTIC TABLET PO SCH (09:02)
[2024-07-12] MEDS: OMEGA-3/DHA/EPA/FISH OIL 1,000 MG CAPSULE PO SCH (09:02)
[2024-07-12] MEDS: PREGABALIN 75 MG CAPSULE PO SCH (09:02)
[2024-07-12] MEDS: THIAMINE 100 MG TABLET PO SCH (09:02)
[2024-07-12] MEDS: DULoxetine HCL 30 MG CAPSULE PO SCH (09:02)
[2024-07-12] MEDS: FOLIC ACID 1 MG TABLET PO SCH (09:02)
[2024-07-12 09:23] VITALS: BP 133/68; PULSE 70; RESP 16; TEMP 97.3; O2SAT 95
[2024-07-12 09:56] LABS: BASOPHILS % (AUTO) 0.3 % (0.0-2.0); EOSINOPHILS % (AUTO) 3.3 % (1.0-6.0); HEMATOCRIT 38.5 % (36-46); HEMOGLOBIN 12.8 g/dL (12.0-16.0); LYMPHOCYTES # (AUTO) 2.3 K/uL (1.0-4.8); MEAN CORPUSCULAR HGB CONC 33.2 G/dL (31.0-37.0); MEAN CORPUSCULAR VOLUME 87 fL (80-100); MONOCYTES # (AUTO) 0.8 K/uL (0.1-1.0); MONOCYTES % (AUTO) 7.4 % (2.0-9.0); NEUTROPHILS # (AUTO) 7.4 K/uL (1.8-7.7); PLATELET COUNT (AUTO) 380 K/uL (150-450); RED BLOOD CELL COUNT(AUTO) 4.41 MIL/uL (4.00-5.20); RED CELL DISTRIBUTION WIDTH 12.7 % (11.5-14.5); WHITE BLOOD COUNT (AUTO) 10.8 K/uL (4.5-11.0)
[2024-07-12 10:14] LABS: HEMOGLOBIN A1C 5.9 % (3.8-5.6)
[2024-07-12 10:23] LABS: ALANINE AMINOTRANSFERASE 43 U/L (12-78); ALBUMIN 2.9 g/dL (3.4-5.0); ALKALINE PHOSPHATASE 179 U/L (46-116); ANION GAP 2 mmol/L (8-16); ASPARTATE AMINOTRANSFERASE 29 U/L (15-37); BILIRUBIN,TOTAL 0.3 mg/dL (0.1-1.0); CALCIUM, TOTAL 8.9 mg/dL (8.8-10.5); CARBON DIOXIDE 33 mmol/L (22-29); CHLORIDE 103 mmol/L (98-107); CHOL/HDL RATIO 4.9 (3.9-5.7); CHOLESTEROL 251 mg/dL (131-200); CREATININE 0.74 mg/dL (0.60-1.30); FREE T4 (FREE THYROXINE) 0.66 ng/dL (0.76-1.46); GLOMERULAR FILTR. RATE CALC > 60 mL/min (>60); GLUCOSE,RANDOM 106 mg/dL (70-110); HDL CHOLESTEROL 51 mg/dL (40-60); LDL CHOL (CALC.) 146 mg/dL (0-130); POTASSIUM 4.4 mmol/L (3.5-5.1); SODIUM SERUM 138 mmol/L (136-145); T4 (THYROXINE) 4.2 mcg/dL (4.7-13.3); THYROID STIMULATING HORMONE 1.72 uIU/mL (0.36-3.74); TRIGLYCERIDES 272 mg/dL (15-150); UREA NITROGEN, BLOOD 19 mg/dL (7-18)
[2024-07-12] MEDS: APIXABAN 5 MG TABLET PO SCH (11:24)
[2024-07-12] MEDS: carvediloL 6.25 MG TABLET PO SCH (13:34)
[2024-07-12] MEDS: LORazepam 2 MG TABLET PO PRN (15:51)
[2024-07-12] MEDS ORDERED: ONDANSETRON 4 MG TABLET PO PRN (16:00)
[2024-07-12 17:30] VITALS: BP 148/73; PULSE 76; RESP 18
[2024-07-12] MEDS: haloperidoL 5 MG TABLET PO PRN (18:28)
[2024-07-12 20:11] VITALS: BP 143/69; PULSE 71; RESP 16; TEMP 97.3; O2SAT 93
[2024-07-12] MEDS: QUEtiapine FUMARATE 200 MG TABLET PO SCH (20:32)
[2024-07-12] MEDS: MELATONIN 5 MG TABLET PO SCH (20:32)
[2024-07-13] MEDS ORDERED: LEVOTHYROXINE SODIUM 50 MCG TABLET PO SCH (06:30)
[2024-07-13] MEDS: LEVOTHYROXINE SODIUM 50 MCG TABLET PO SCH (06:38)
[2024-07-13] MEDS: DULoxetine HCL 20 MG CAPSULE PO SCH (09:39)
[2024-07-13] MEDS: PREGABALIN 50 MG CAPSULE PO SCH (09:39)
[2024-07-13] MEDS ORDERED: NALT50TA33 PO (10:23)
== END 2024-07-13 13:45 | disposition home or self-care (01) | DRG 885 ==
LOC: EMS 13:34 → EDH 20:12 → UNDOADMIN 20:12 → B2X 22:18
PROVIDERS: ADMIT Psychiatry & Neurology Psychiatry; ATTEND Psychiatry & Neurology Psychiatry
PROC: GZHZZZZ Group Psychotherapy (ICD-10-PCS; principal; 2024-07-12)
PROC: GZ51ZZZ Individual Psychotherapy, Behavioral (ICD-10-PCS; 2024-07-12)
DX: F25.9 Schizoaffective disorder, unspecified (principal); R45.851 Suicidal ideations; Z68.41 Body mass index [BMI] 40.0-44.9, adult; E78.5 Hyperlipidemia, unspecified; K21.9 Gastro-esophageal reflux disease without esophagitis; Z20.822 Contact with and (suspected) exposure to COVID-19; E03.9 Hypothyroidism, unspecified; I48.91 Unspecified atrial fibrillation; J45.909 Unspecified asthma, uncomplicated; F15.90 Other stimulant use, unspecified, uncomplicated; E11.9 Type 2 diabetes mellitus without complications; E66.9 Obesity, unspecified; I10 Essential (primary) hypertension; F17.210 Nicotine dependence, cigarettes, uncomplicated; F41.9 Anxiety disorder, unspecified; Z96.642 Presence of left artificial hip joint; G89.4 Chronic pain syndrome
CPT/HCPCS: 80048; 80053; 80061; 80307; 81003; 83036; 84436; 84439; 84443; 85025; 86592; 93005; 99285; G0480

== ENCOUNTER 2024-08-25 11:48 | Emergency (ER) | payer MEDICARE, MEDICAID ==
[~2024-08-25] VITALS: Ht 175.3 cm; Wt 113.6 kg
[~2024-08-25 11:48] MED LIST changes: +ATOR40TA28 PO; +CARV-165 PO; -CARV6.2534 PO; +DULO30CA2 PO; -DULO60CA98 PO; -HYDR-4062 PO; -LEVO125T95 PO; +MELA5TAB40 PO; -OMEG100033 PO; -PREG50 PO; +QUET300T19 PO; -QUET300T2 PO
[2024-08-25] MEDS ORDERED: HYDR-4061 PO (12:13)
[2024-08-25 12:29] LABS: COVID AG,FIA SOURCE NASAL SWAB
[2024-08-25 12:30] LABS: BASOPHILS % (AUTO) 0.4 % (0.0-2.0); EOSINOPHILS % (AUTO) 1.8 % (1.0-6.0); HEMATOCRIT 41.5 % (36-46); HEMOGLOBIN 13.7 g/dL (12.0-16.0); LYMPHOCYTES # (AUTO) 2.7 K/uL (1.0-4.8); MEAN CORPUSCULAR HEMOGLOBIN 28.6 pg (26.0-34.0); MEAN CORPUSCULAR VOLUME 87 fL (80-100); MONOCYTES # (AUTO) 0.9 K/uL (0.1-1.0); MONOCYTES % (AUTO) 5.8 % (2.0-9.0); NEUTROPHILS # (AUTO) 11.8 K/uL (1.8-7.7); PLATELET COUNT (AUTO) 494 K/uL (150-450); RED BLOOD CELL COUNT(AUTO) 4.79 MIL/uL (4.00-5.20); RED CELL DISTRIBUTION WIDTH 14.5 % (11.5-14.5); WHITE BLOOD COUNT (AUTO) 15.7 K/uL (4.5-11.0)
[2024-08-25 12:33] LABS: APPEARANCE,URINE CLEAR (CLEAR); BILIRUBIN,URINE NEGATIVE (NEGATIVE); COLOR,URINE LIGHT YELLOW (YELLOW); GLUCOSE, URINE (UA) NEGATIVE (NEGATIVE); KETONES,URINE NEGATIVE (NEGATIVE); LEUKOCYTE ESTERASE ,URINE NEGATIVE (NEGATIVE); NITRATE,URINE NEGATIVE (NEGATIVE); OCCULT BLOOD,URINE NEGATIVE (NEGATIVE); PH,URINE 6.5 (5.0-8.0); PH,URINE DRUG SCREEN 6.5 (5.0-8.0); PROTEIN,URINE NEGATIVE (NEGATIVE); SPECIFIC GRAVITIY, URINE 1.007 (1.003-1.030); UROBILINOGEN,URINE <=1.0 mg/dL (<=1.0)
[2024-08-25 12:39] LABS: ANION GAP 10 mmol/L (8-16); CALCIUM, TOTAL 9.2 mg/dL (8.8-10.5); CARBON DIOXIDE 27 mmol/L (22-29); CHLORIDE 99 mmol/L (98-107); CREATININE 0.77 mg/dL (0.60-1.30); GLOMERULAR FILTR. RATE CALC > 60 mL/min (>60); GLUCOSE,RANDOM 98 mg/dL (70-110); POTASSIUM 4.8 mmol/L (3.5-5.1); SODIUM SERUM 136 mmol/L (136-145); UREA NITROGEN, BLOOD 19 mg/dL (7-18)
[2024-08-25 12:40] LABS: ALCOHOL, URINE DRUG SCREEN NEGATIVE (NEGATIVE); AMPHET/METH SCREEN,URINE NEGATIVE (NEGATIVE); BARBITURATE SCREEN, URINE NEGATIVE (NEGATIVE); BENZODIAZEPINES SCREEN,URINE NEGATIVE (NEGATIVE); CANNABINOID SCREEN,URINE NEGATIVE (NEGATIVE); COCAINE SCREEN,URINE NEGATIVE (NEGATIVE); METHADONE SCREEN, URINE NEGATIVE (NEGATIVE); OPIATE SCREEN,URINE NEGATIVE (NEGATIVE); PHENCYCLIDINE SCREEN,URINE NEGATIVE (NEGATIVE)
[2024-08-25 13:14] LABS: SARS-COV2 (COVID) ANTIGEN,FIA Negative (Negative)
[2024-08-25 13:26] VITALS: BP 139/84; PULSE 68; RESP 16; TEMP 98.5; O2SAT 97
== END 2024-08-25 13:54 | disposition home or self-care (01) ==
LOC: EMS 11:52
DX: F25.1 Schizoaffective disorder, depressive type (principal); F31.9 Bipolar disorder, unspecified; F41.9 Anxiety disorder, unspecified; M19.90 Unspecified osteoarthritis, unspecified site; I48.91 Unspecified atrial fibrillation; F15.90 Other stimulant use, unspecified, uncomplicated; Z98.890 Other specified postprocedural states; Z79.01 Long term (current) use of anticoagulants; Z79.899 Other long term (current) drug therapy; Z20.822 Contact with and (suspected) exposure to COVID-19
CPT/HCPCS: 99285; 87426; 80048; 81003; 85025; 36415; 80307; G0480